=== PATIENT | female | born 1945 | race Caucasian/White ===

== ENCOUNTER 2023-02-28 10:31 | Inpatient (IN) ==
--- NOTE | 2023-02-24 09:51 | PAT Medication Instructions ---
Medication Instructions Date of Service February 24, 2023 Home Medications ascorbate calcium (vitamin C) 500 mg tablet 1,000 mg PO QAM cholecalciferol (vitamin D3) 50 mcg (2,000 unit) capsule 50 mcg PO BID clonidine 0.2 mg/24 hr weekly transdermal patch 1 patch transdermal WK esomeprazole magnesium 40 mg capsule,delayed release (Nexium) 40 mg PO QAM hydrochlorothiazide 25 mg tablet 25 mg PO QAM valsartan 160 mg tablet (Diovan) 160 mg PO QAM zinc 50 mg tablet 50 mg PO QAM magnesium oxide 400 mg PO HS Continue as directed clonidine 0.2 mg/24 hr weekly transdermal patch 1 patch transdermal WK (do not put on or near surgical site) DO NOT take the morning of surgery ascorbate calcium (vitamin C) 500 mg tablet 1,000 mg PO QAM cholecalciferol (vitamin D3) 50 mcg (2,000 unit) capsule 50 mcg PO BID hydrochlorothiazide 25 mg tablet 25 mg PO QAM valsartan 160 mg tablet (Diovan) 160 mg PO QAM zinc 50 mg tablet 50 mg PO QAM Take morning of surgery With a small sip of water, OTHERWISE NOTHING TO EAT OR DRINK AFTER MIDNIGHT: esomeprazole magnesium 40 mg capsule,delayed release (Nexium) 40 mg PO QAM Take evening before surgery cholecalciferol (vitamin D3) 50 mcg (2,000 unit) capsule 50 mcg PO BID magnesium oxide 400 mg PO HS Other Notes If you have any questions please call us at [phone] or [phone] or [phone] or [phone]
--- NOTE | 2023-02-25 09:13 | Anesthesiology Consultation ---
Date of Service February 25, 2023 Assessment & Plan (1) Encounter for pre-operative examination: - Check BSG AM DOS - COVID screening: Per assessment on 02/25: No known COVID-19 positive contacts or current COVID-19 related symptoms. Travel screen negative. Patient vaccinated. At surgeon discretion if preop Covid testing being done. - Outpatient joint assessment: Pt currently scheduled for inpatient pathway. Patient states that she is aware she is not candidate for outpatient joint pathway for upcoming revision surgery. Patient scheduled for SDA. - Pt scheduled for admission post-operatively. Plan for COVID Vyas AM DOS due to possibility that patient may have a roommate. OR aware. Vyas order placed. - S/P Left TKA (01/22/22): Epidural at L3/4 + PNB at [facility] - Anesthesia requests/concerns: Patient requests spinal or epidural anesthesia. Regarding preop medication instructions, patient states she is agreeable to hold valsartan DOS but will alternatively then take it the night before surgery (typically takes in the AM otherwise). Dr. Miller aware of patient's upcoming surgery/history. Patient requests Dr. Banks for anesthesiologist DOS. Chart Review Chart Review: Acceptable Risk for Surgery (pending evaluation AM DOS) and Patient seen in Pre Admission Testing Teaching & Discussion Pre-Anesthesia Teaching/Discussion Notes: Instructed NPO after midnight before surgery,except medications with 15 cc of water. Medication instructions provided according to the PAT guidelines. History Surgery Operation Date: 02/28/23 13:15 Proposed Procedures p Revision Right Total Hip Arthroplasty to Constrained Liner - Mayito Cleary, DO Height/Weight Height: 5 ft 7 in Weight: 78.1 kg Allergies Allergy/AdvReac Type Severity Reaction Status Date / Time Beta-Blockers Allergy Severe Anaphylaxis Verified 02/24/23 08:22 (Beta-Adrenergic Bloc vancomycin Allergy Severe Anaphylaxis Verified 02/24/23 08:22 amoxicillin [From Amoxil] Allergy Intermediate Rash Verified 02/24/23 08:22 ampicillin Allergy Intermediate Skin rash Unverified 02/25/23 11:40 Medications Home Medications Medication Instructions Recorded Confirmed Last Taken ascorbate calcium (vitamin C) 500 1,000 mg PO QAM 11/03/20 02/24/23 01/31/23 08:00 mg tablet cholecalciferol (vitamin D3) 50 50 mcg PO BID 11/03/20 02/24/2323 08:00 mcg (2,000 unit) capsule clonidine 0.2 mg/24 hr weekly 1 patch transdermal WK 12/04/21 02/24/23 01/30/23 transdermal patch esomeprazole magnesium 40 mg 40 mg PO QAM 12/04/21 02/24/23 01/31/23 08:00 capsule,delayed release (Nexium) hydrochlorothiazide 25 mg tablet 25 mg PO QAM 12/04/21 02/24/23 01/31/23 08:00 valsartan 160 mg tablet (Diovan) 160 mg PO QAM 12/04/21 02/24/23 01/31/23 08:00 zinc 50 mg tablet 50 mg PO QAM 12/04/21 02/24/23 01/31/23 08:00 magnesium oxide 400 mg PO HS 02/24/23 02/24/23 Unknown Past Medical History Medical History Atrial fibrillation Paroxysmal, onset after COVID 10/2019 - no recent issues/no anticoagulation SR with PACs on recent ECG 02/20/23 Elevated cholesterol GERD (gastroesophageal reflux disease) controlled, stable per pt History of COVID-10/2019> developed a. fib + cardiomyopathy Hx of basal cell carcinoma Hypertension Mitral valve regurgitation "slight, EF 68%" per pt, reports echo completed 2 yrs ago-not available for review Neuropathy BLE Osteoarthritis Pre-diabetes Pt denies DM diagnosis Most recent A1C 12/2020 6.9% Stress incontinence Past Family History Family History Father Pancreatic cancer Grandmother (Maternal) Breast cancer Other No family history of adverse response to anesthesia Denies family history of Ovarian cancer Prostate cancer Myocardial infarction Colorectal cancer Past Surgical History Surgical History History of colonoscopy History of esophagogastroduodenoscopy (EGD) History of partial hysterectomy History of repair of ACL LEFT History of root canal procedure History of tonsillectomy and adenoidectomy History of tooth extraction History of total hip replacement RT History of total knee replacement Left TKA (01/22/22): Epidural at L3/4 + PNB at [facility] *Specific anesthesia use requests made by patient prior to surgery* History of total shoulder replacement LEFT Hx of bilateral breast reduction surgery Hx of LASIK Social History Smoking Status: Never smoker Do You Dip or Chew Tobacco: No Hx Alcohol Use: Yes Alcohol type: wine alcohol intake frequency: holidays/special occasions only Hx Substance Use: No substance use type: does not use Review of Systems Patient denies chest pain, dyspnea on exertion, cough, wheezing. Physical Exam Vital Signs VITALS BP 165/91 P 74 SP02 97%RA RESP 16 PHYSICAL Full cervical extension range of motion. Full TMJ range of motion. TMD 3.5 finger breaths Mallampati Score 2 Lungs: clear throughout to auscultation Cardiac: regular rate and rhythm, no murmurs noted Spine: normal Extremities: no LE edema Lab Results Anesthesia Preop Results Results Anesthesia Widget: WBC 7.79 K/ul (4.8-10.8) 02/20/23 Hgb 13.4 g/dl (12.0-16.0) 02/20/23 Hct 41.3 % (37.0-47.0) 02/20/23 Plt 281 K/uL (130-400) 02/20/23 Na 134 mmol/L (136-145) L 02/25/23 K 4.1 mmol/L (3.5-5.1) 02/25/23 Cl 98 mmol/L (98-107) 02/25/23 CO2 28 mmol/L (21-32) 02/25/23 BUN 26 mg/dl (6-23) H 02/25/23 Creat 0.64 mg/dl (0.6-1.2) 02/25/23 Glucose Level 159 mg/dl (70-99(Fasting)) H 02/25/23 PT 10.7 Seconds (9.0-12.0) 02/25/23 PTT 26.1 Seconds (21.0-31.0) 02/25/23 INR 1.0 (0.9-1.1) 02/25/23 HA1c 7.1 % (4.5-5.6) H 02/25/23 Blood Type A Positive 02/25/23 Antibody Screen NEGATIVE 02/25/23 Testing Electrocardiogram Date: 02/20/23 SR with PACs at 71bpm. Right axis deviation. Septal infarct (cited on/before 01/08/22 per handicraft or hobby shop manager comparison). Chest X-Ray Date: 02/25/23 FINDINGS: Left shoulder arthroplasty is partially imaged. Anterior cervical spine fusion is incidentally noted. Lung volumes are normal. Lungs are clear. There is no pneumothorax or pleural effusion. Cardiac size is normal. Mediastinal contours are normal. There is no evidence for pulmonary edema. IMPRESSION: No acute cardiopulmonary findings. COVID-19 Risk Screen Screening Information COVID-19 Screen Date: 02/25/23 Exposure 21 Days Family/Household +COVID Last 21 Days: No Exposure 10 Days Any COVID Exposure Last 10 Days: No Symptoms Last 10 Days Experienced COVID Sx Last 10 Days: No + COVID 0-90 Days COVID + in Last 0-90 Days: No
[~2023-02-28 10:31] MED LIST: ACETAMINOPHEN 500 MG TAB PO SCH; BUPIVACAINE 0.5 % 5 MG/1 ML PF 10ML VIAL ONE; FAMOTIDINE 20 MG TAB PO SCH; GABAPENTIN 300 MG CAP PO SCH; LR 500ML BOLUS, THEN 15ML/HR IV SCH; LR 60ML/HR IV SCH; ORTHO JOINT MIX INFIL SCH; TRANEXAMIC ACID 1,000 MG **IV Intra-op IV SCH; TRANEXAMIC ACID 1,000 MG **IV Pre-op IV SCH; ceFAZolin 2000MG 2,000 MG/15 ML SYR IV SCH; dexAMETHasone 4 MG TAB PO SCH
[2023-02-28] MEDS ORDERED: ONDANSETRON INJ 2 MG/ML 2 ML VIAL IV PRN ×2 (12:26→18:18)
[2023-02-28] MEDS ORDERED: ePHEDrine sulfate 50 MG/ML AMP IV PRN (12:26)
[2023-02-28] MEDS ORDERED: ATROPINE SULFATE 0.1 MG/ML 10ML SYR IV PRN (12:26)
[2023-02-28] MEDS ORDERED: fentaNYL citrate PF 100 MCG/2 ML VIAL IV PRN (12:26)
--- NOTE | 2023-02-28 13:17 | History & Physical Bridge Note ---
Date of Service February 28, 2023 History & Physical Bridge Note I have examined the patient, reviewed the History & Physical and in the interval since the performance of the History & Physical I have noted the following changes of clinical significance: no changes noted
[2023-02-28] MEDS ORDERED: PROPOFOL IV EMULSION 10 MG/ML 20 ML VIAL IV ONE ×2 (13:57)
[2023-02-28] MEDS ORDERED: KETAMINE 50 MG/5 ML SYRINGE ONE (13:58)
[2023-02-28] MEDS ORDERED: LIDOCAINE 2% 2 ML VIAL/AMP(20MG/ML) INFIL ONE (13:58)
[2023-02-28] MEDS ORDERED: MIDAZOLAM HCL 1 MG/ML 2ML VIAL ONE (14:03)
[2023-02-28] MEDS ORDERED: ORTHO JOINT ANESTHETIC ONE (14:04)
[2023-02-28] MEDS ORDERED: DEXAMETHASONE SOD INJ 4 MG/ML VIAL ONE (14:57)
[2023-02-28] MEDS ORDERED: ONDANSETRON INJ 2 MG/ML 2 ML VIAL ONE (14:57)
[2023-02-28] MEDS ORDERED: PHENYLEPHRINE HCL 10 MG/ML VIAL ONE (15:17)
--- NOTE | 2023-02-28 15:48 | Operative Report ---
PG Post Operative Report Pre & Post Diagnosis Operation Date: 02/28/23 13:15 Pre-Op Diagnosis: Recurrent Dislocation Right Hip Arthroplasty Post-Op Diagnosis: Recurrent Dislocation Right Hip Arthroplasty I identified the patient and participated in the time-out.: Yes Procedure Operation Date: 02/28/23 13:15 Actual Procedures p Revision Right Total Hip Arthroplasty to Constrained Liner(Right) - Mayito Cleary DO Surgeon Mayito Cleary DO [employer] Mayito Blevins PA-C Estimated Blood Loss 50 Findings Consistent with Post-Op Diagnosis Specimens None Description of Procedure On February 28, 2023 Annie arrived at [facility] for the above procedure. She was seen in the preoperative holding area and the operative extremity identified and signed. She was given a spinal anesthetic. She was taken back the operating room and laid on the table in supine position. She was put under basic sedation. She was put into the lateral decubitus position. The right hip was prepped and draped in sterile fashion. A timeout was done. The patient and the operative extremity was properly identified. An anterior lateral incision was once again used. Dissection was taken down through the IT band. The IT band was opened. The anterior third of the abductors look like they never fully healed and were chronically torn and retracted back. The remainder of the abductors were in good shape. There was a large heme hematoma that was evacuated from the recurrent dislocations. The alignment of the implants looked okay. There was no signs of infection. The femoral and acetabular components were stable. I was able to easily piston the hip and easily dislocate it. I did not see any damage to the polyethylene insert. The femoral head was removed and the acetabulum was exposed. The polyethylene insert was then removed. Time was spent doing a complete circumferential soft tissue exposure around the edge of the acetabulum. A DePuy Melrose constrained acetabular liner with a +4 neutral offset was impacted into place. The proximal femur was then exposed. A 32 mm ceramic head with a +9 neck was then impacted into place. The ring was placed around the neck of the femur. The hip was then reduced. The ring was then slid over the acetabular liner. The hip was brought through full range of motion and felt to be stable. The wound was then irrigated. A 3-minute Betadine lavage was then done. The hip was then injected with 60 cc of an orthopedic pain control cocktail. The IT band was then closed with #1 Vicryl suture. Skin was closed with 2-0 Vicryl and ko. She was then placed in a Silverlon dressing. She was then transferred to a hospital bed and taken to the postanesthesia care unit in stable condition. She tolerated the procedure well. Mayito Blevins PA-C, was present for the entire procedure. He was critical for patient positioning, prepping, draping, retraction exposure, wound closure and application of sterile dressing. I attest to the content of the Intraoperative Record and any orders documented therein. Any exceptions are noted below.
--- NOTE | 2023-02-28 16:48 | XRay Report ---
XR hip 1V RT w pelvis CLINICAL HISTORY: Postoperative evaluation. COMPARISON: Pelvis and right hip radiographs February 20, 2023. FINDINGS: There are postoperative findings consistent with revision right hip arthroplasty. There is no periprosthetic fracture. No unexpected radiopaque foreign bodies. Skin ko are present. Left hip osteophytosis incidentally noted. IMPRESSION: Expected findings following revision right hip arthroplasty. ACT 112: Negative or not required by law. Electronically signed by: Jaxon Quiñones M.D. 02/28/2023 4:47 PM
--- NOTE | 2023-02-28 17:30 | Anesthesiology Progress Note ---
Date of Service February 28, 2023 Anesthesia Post Procedure Vital Signs Vital Signs: Temp Pulse Resp BP Pulse Ox O2 Del Method O2 Flow Rate 02/28/23 17:20 56 L 14 118/66 98 Nasal Cannula 2 02/28/23 17:10 63 16 122/67 97 Nasal Cannula 2 02/28/23 17:00 54 L 16 119/66 98 Nasal Cannula 2 02/28/23 16:50 52 L 14 114/60 97 Nasal Cannula 2 02/28/23 16:40 53 L 16 119/65 97 Nasal Cannula 2 02/28/23 16:30 55 L 16 119/70 96 Nasal Cannula 2 02/28/23 16:20 60 16 126/67 98 Oxymask 6 02/28/23 16:10 58 L 16 120/65 96 Oxymask 6 02/28/23 16:06 97.7 F 68 18 123/68 96 Oxymask 6 Transfer of Care Handoff Completed per policy Notes Mental Status: alert / awake / arousable and participated in evaluation Patient Amnestic to Procedure: Yes Nausea / Vomiting: adequately controlled Pain: adequately controlled Airway Patency, RR, SpO2: stable & adequate BP & HR: stable & adequate Hydration State: stable & adequate Neuraxial Anesthesia: was administered and sensory block is resolving Anesthetic Complications: no major complications apparent and Pt Satisfied with anesthetic care
[2023-02-28] MEDS ORDERED: NALOXONE HCL 0.4 MG/1 ML VIAL/CARP IV PRN (18:18)
[2023-02-28] MEDS ORDERED: oxyCODONE HCL IR 5 MG TAB (IMMEDIATE RELEASE) PO PRN (18:18)
[2023-02-28] MEDS ORDERED: HYDROmorphone INJ 0.5 MG/0.5 ML SYR IV PRN (18:18)
[2023-02-28] MEDS ORDERED: SODIUM CHLORIDE 0.9% 1000ML 1,000 ML IV SCH (18:18)
[2023-02-28] MEDS ORDERED: bisacodyL 10 MG SUPP PR PRN (18:18)
[2023-02-28] MEDS ORDERED: MAGNESIUM HYDROXIDE SUSP 30 ML UDC PO PRN (18:18)
[2023-02-28] MEDS ORDERED: METOCLOPRAMIDE HCL INJ 5 MG/ML 2 ML VIAL IV PRN (18:18)
[2023-02-28] MEDS: CHECK CLONIDINE PATCH PLACEMENT SCH (20:17)
[2023-02-28] MEDS: KETOROLAC TROMETHAMINE 15 MG/ML VIAL IV SCH (20:17)
[2023-02-28] MEDS: DOCUSATE SODIUM 100 MG CAP PO SCH (20:23)
[2023-02-28] MEDS ORDERED: SENNA 8.6 MG TAB PO SCH (21:00)
[2023-02-28] MEDS ORDERED: MAGNESIUM OXIDE 400 MG TAB PO SCH (21:00)
[2023-02-28] MEDS: ASPIRIN 81 MG ECTAB PO SCH (22:07)
[2023-02-28] MEDS: ACETAMINOPHEN 500 MG TAB PO SCH (22:07)
[2023-02-28] MEDS: ceFAZolin 2000MG 2,000 MG/15 ML SYR IV SCH (22:25)
[2023-03-01] MEDS: CHECK CLONIDINE PATCH PLACEMENT SCH ×2 (00:24→07:56)
[2023-03-01] MEDS: KETOROLAC TROMETHAMINE 15 MG/ML VIAL IV SCH ×3 (00:26→09:51)
[2023-03-01] MEDS: ceFAZolin 2000MG 2,000 MG/15 ML SYR IV SCH (05:45)
[2023-03-01] MEDS: ACETAMINOPHEN 500 MG TAB PO SCH (05:45)
--- NOTE | 2023-03-01 07:10 | Orthopedic Progress Note ---
Date of Service March 01, 2023 Assessment & Plan (1) Status post revision of total hip: Overall she is doing well. She is not having much pain in the right hip. She will be seen by physical therapy today for ambulation and range of motion exercises. She can be discharged home later today. She will follow-up with orthopedics in 2 weeks. Rosa Valencia was seen and examined at bedside this morning. Overall she is doing fairly well. She is not having much pain in the right hip. She has been up and ambulating to the bathroom. She has no complaints.. Review of Systems All systems reviewed & are unremarkable except as noted in HPI & below. Physical Exam On physical examination of the right hip, the dressing is clean and dry. She is neurovascular intact.. Results & Data Results & Data Laboratory Results . Diagnostic Findings Postoperative x-rays of the right hip show the prosthesis to be in good alignment.. PG Care Time/CCT Total # of Minutes Spent Total Time Spent with Patient: Total time spent is greater than 50% in coordination of care (as documented) at patient's floor/unit and/or counseling patient: Coding Level of Care Code 67042 Post Operative Follow-Up Diagnoses Status post revision of total hip Z96.649
--- NOTE | 2023-03-01 07:11 | Discharge Summary ---
Date of Service March 01, 2023 Principal Diagnosis Same as "Discharge Diagnosis" noted below under Discharge Instructions. Discharge Exam On physical examination of the right hip, the dressing is clean and dry. She is neurovascular intact.. Discharge Data Procedures Performed Operation Date: 02/28/23 13:15 Actual Procedures p Revision Right Total Hip Arthroplasty to Constrained Liner(Right) - Mayito Cleary DO Ordered Studies 02/28/23 05:00 US - OR guided needle placemen Routine Hospital Course (1) Status post revision of total hip: On February 28, 2023 Annie arrived at [facility] and underwent a revision right hip replacement without complication. She had a spinal anesthetic. Postoperatively she was started on aspirin for DVT prophylaxis and transferred to the general orthopedic floors. Her hospital course was uneventful. On postop day #1, her vital signs were stable and her pain was well controlled. She was able to participate well with physical therapy doing ambulation and range of motion exercises. She was then discharged home. She will follow with orthopedics in 2 weeks. PG Care Time/CCT Total # of Minutes Spent Total Time Spent with Patient: Total time spent is greater than 50% in coordination of care (as documented) at patient's floor/unit and/or counseling patient: Discharge Plan Discharge Items Patient Disposition: Home - Home Health Services Reason For Visit: POST SURGICAL CARE Discharge Diagnosis: Revision right hip replacement Activity: Per Instructions section Non-emergency contact: Surgeon Call non-emergency contact if: your wound has increased redness and your wound has increased drainage Follow-up/Referrals: Nikolai Tellez MD [Primary Care Provider] - Diet: Regular Addtl Attending Provider Instructions: Activity and Therapy Recommendations: * If you are using [facility] then therapy will be provided at your home until they feel you have accomplished all of your goals. * If you are using [facility] then Physical Therapy will be provided until they feel you are ready to start Outpatient Physical Therapy. * If you are not using home therapy then Outpatient Physical Therapy should start about 3-5 days from your day of surgery. Therapy will last about 6-10 weeks * You were shown a series of exercises in the hospital. Do these exercises three times each day including the exercises you were shown in physical therapy. * Get up and walk several times each day.~ For the first four weeks, try not to stand or walk for more than one hour at a time. If you do stand or walk for more than one hour, you will not hurt anything, but your leg will likely swell.~~ * As you feel comfortable, you may change from the walker or crutches to a cane and~then to independent walking. Medications: * Aspirin Most patients will be required to take Aspirin 81mg twice a day for 6 weeks after surgery. This is obtained [id number] and a prescription is not necessary. * Other medications may be prescribed for specific circumstances. If you have any questions, please call the office at . * Resume previous home medications unless otherwise instructed TEDs/Elastic Stockings: The white elastic stockings help limit swelling and prevent blood clots from forming in your legs. The more you wear them, the more they work. Wear them for six weeks. Dressing Care: Leave the Silverlon dressing in place for 7 days. After 7 days you may remove the dressing. If the incision is not draining then you may leave the ko open to air. If there is a little bit of drainage or if the ko are getting stuck on your clothing then cover the incision with a dry dressing. The ko will be removed at your 2 week follow-up appointment. Showering: You may shower with the Silverlon dressing in place. Do not let the shower spray hit the dressing directly. Pat the Silverlon dressing dry. If the dressing becomes wet underneath, then simply remove the dressing. Keep the incision dry until you are 7 days out from the day of surgery. After 7 days you may remove the Silverlon dressing and shower with the ko exposed. Let soapy water run over the ko and pat them dry. Do not scrub or soak the incision. Things To Watch For: * Drainage from the incision site that occurs more than one week after your angela fely. * Increased redness at the incision site. * Fever above 102 degrees Fahrenheit. * Unusual chest pain or shortness of breath. * Call [facility] at with any of the above problems Follow-Up Visit: Follow-up with Dr. Cleary's PA (Mayito Blevins) 2-3 weeks after your day of surgery. He will remove your ko and answer any questions. If you have any additional questions or concerns, Dr Cleary is usually in the office at the same time and will be available An appointment was probably scheduled when you signed-up for surgery in the off ice. If you have any questions call Office Instructions: More detailed instructions as well as Frequently Asked Questions were provided in a folder by our office when you signed-up for surgery. Please review these instructions when you get home. If you have any further questions or concerns, please feel free to call the office at [phone] Pending Studies at Discharge: No Stand-Alone Forms: My [facility] Medications and DC Order Prescriptions: New ketorolac 10 mg tablet 10 mg PO Q8H 5 Days Qty: 15 0RF aspirin 81 mg Tablet,Delayed Release (Dr/Ec) 81 mg PO BID 42 Days Qty: 0 0RF Continued cholecalciferol (vitamin D3) 50 mcg (2,000 unit) capsule 50 mcg PO BID ascorbate calcium (vitamin C) 500 mg tablet 1,000 mg PO QAM zinc 50 mg Tablet 50 mg PO QAM hydrochlorothiazide 25 mg Tablet 25 mg PO QAM valsartan [Diovan] 160 mg Tablet 160 mg PO QAM clonidine 0.2 mg/24 hr patch weekly 1 patch transdermal WK Rx Instructions: Apply weekly on Sundays esomeprazole magnesium [Nexium] 40 mg Capsule,Delayed Release(Dr/Ec) 40 mg PO QAM magnesium oxide 400 mg magnesium Capsule 400 mg PO HS Admission Data Admit Date/Time: 02/28/23 16:01 Attending Provider: Mayito Cleary Admit Provider: Mayito Cleary Primary Care Provider: iNkolai Tellez
[2023-03-01] MEDS: DOCUSATE SODIUM 100 MG CAP PO SCH (07:55)
[2023-03-01] MEDS: ASPIRIN 81 MG ECTAB PO SCH (07:59)
[2023-03-01] MEDS ORDERED: dexAMETHasone 4 MG TAB PO SCH (08:00)
[2023-03-01] MEDS ORDERED: ZINC SULFATE 220 MG CAPSULE PO SCH (09:00)
[2023-03-01] MEDS ORDERED: MULTIVITAMIN TAB PO SCH (09:00)
[2023-03-01] MEDS ORDERED: PANTOprazole 40 MG TAB PO SCH (09:00)
[2023-03-01] MEDS ORDERED: hydroCHLOROthiazide 25 MG TAB PO SCH (09:00)
[2023-03-01] MEDS ORDERED: VALSARTAN 80 MG TAB PO SCH (09:00)
== END 2023-03-01 11:59 | disposition home health service (06) | DRG 468 ==
LOC: ASU 10:31 → EDINP 10:31 → OBSVTOIN 16:01 → 3W 19:55

== ENCOUNTER 2024-05-05 14:51 | Inpatient (IN) ==
--- OUTSIDE RECORDS SUMMARY | 2024-05-05 14:56 | External Medical Summary | Summary of Care ---
Author Name Unknown Organization [facility] Address [address] [place] [address] Phone [phone] Care Team Providers Care Hand Fur Cleaner Name Role Phone Angelica Dueñaslle STAR Primary Care Provider Encounter Details Date Type Department Care Team (Late st Contact Info) Description 03/20/2024 Orders Only Orthopaedics [facility] [address] [place] [id number] Sharer, Karen Oates PA-C [address] [place] [address] Allergies Active Allergy Reactions Criticality Noted Date Comments Ampicillin Rash 06/12/2021 Atenolol Wheezing 03/20/2024 Rosuvastatin Muscle pain 05/23/2023 Also other statin. Declines statins. Iodinated Contrast Media Hives 09/01/2021 Pt stated she is allergic to IVP dye with a reaction of hives. Metoprolol Other (Please comment) 08/11/2021 Difficulty breathing Dtgfcsg-Qwxojq-Dacbj Pertussis 09/24/2021 Vancomycin Anaphylaxis High 02/15/2018 Other reaction(s): anaphylaxis/angioed dennis documented as of this encounter (statuses as of 04/21/2024) Medications Medication Sig Dispensed Refills Start Date End Date Status Esomeprazole Magnesium 20 MG Oral Packet Take 20 mg by mouth daily before breakfast. Active cloNIDine 0.2 MG/24HR Transdermal Patch Weekly (Catapres-Tts- 2) PLACE 1 PATCH TOPICALLY ON THE SKIN ONCE A WEEK 14 Patch 3 07/21/2023 07/20/2024 Active Valsartan 160 MG Oral Tablet (Diovan)Indications :Severe hypertension Take 1 Tablet by mouth in the morning. 100 Tablet 3 02/09/2024 05/23/2024 Active Cyclobenzaprine HCl 10 MG Oral Tablet (Flexeril)Indicatio ns:Sciatica of right side Take 1 Tablet by mouth in the morning and 1 Tablet at noon and 1 Tablet before bedtime. 30 Tablet 1 02/09/2024 Active Additional Information Patient not taking.Informant: Patient, Reported on 03/20/2024 Premarin 0.625 MG/GM Vaginal Cream (Estrogens Conjugated) Administer into the vagina at bedtime. As directed. 42.5 g 5 03/13/2024 Active Additional Information Patient not taking.Informant: Patient, Reported on 03/20/2024 Vitamin C 1000 MG Oral Tablet Take 1 Tablet by mouth in the morning and 1 Tablet before bedtime. Active Vitamin D (Cholecalciferol) 50 MCG (2000 UT) Oral Capsule Take 50 mcg by mouth in the morning and 50 mcg before bedtime. Active Acetaminophen 325 MG Oral Tablet (Tylenol) Take 3 Tablets by mouth every 6 hours as needed for mild pain 30 Tablet 03/21/2024 Active Vitamin 27-0.8 MG Oral Tablet Take 1 Tablet by mouth in the morning. 60 Tablet 03/21/2024 Active documented as of this encounter (statuses as of 04/21/2024) Active Problems Problem Noted Date Diagnosed Date Fall 03/20/2024 Overview: From horse cart SDH (subdural hematoma) 03/20/2024 Pneumothorax on right 03/20/2024 Dizziness 03/08/2024 Acute non intractable tension-type headache 02/09 Nausea without vomiting 03/08/2024 Sciatica of right side 02/09/2024 Status post total left knee replacement 01/26/20 22 Hyperlipidemia 10/16/2021 Essential hypertension with goal blood pressure less than 140/90 10/16/2021 Well adult exam 09/21/2021 Overview: Reaction to Tdap in past. 04/02 subdural hematoma, rib frx, small PTX, right flank hematoma 7x4xcm. anemia hgb 9 (down from 13). Transient hypotension 06/30 diag mammo [facility] WNL +calcs stable from 2019. 04/29 MRI knee severe OA +lateral & medial meniscal tears. ACL intact. Urge incontinence of urine 09/21/2021 Type 2 diabetes mellitus wit h hemoglobin A1c goal of less than 8.0% 09/21/2021 Overview: Diet controlled. Paroxysmal atrial fibrillation 06/12/2021 Overview: Started post-COVID. Now is intermittent. ECHO, cardiac workup. Declined anti- coag. Bruised on ASA. Now a few beats 2x/wk. History of 2019 novel coronavirus disease (COVID -19) 06/12/2021 Overview: Suspected 11/2019. Ab test negative per pt, no testing available at time of illness History of total hip replacement, right 06/12/20 Status post replacement of left shoulder joint 0 06/12/2021 Osteoarthritis of left knee 06/12/2021 Overview: ACL repair. History of hysterectomy 06/12/2021 Overview: For endometriosis, removed cervix, and one ovary. documented as of this encounter (statuses as of 04/21/2024) Resolved Problems Problem Noted Date Diagnosed Date Resolved Date Severe hypertension 09/21/2021 03/12/20 24 Overview: duplicate documented as of this encounter (statuses as of 04/21/2024) Immunizations Name Administration Dates Next Due COVID-19 mRNA, LNP-s, No Pre serve, 2-Dose Series (Moderna) 11/11/2020,10/14/2020 COVID-19, mRNA, LNP-s, PF, B ooster, 100mcg/0.5mg (Moderna) 07/10/2021,07/09/2021 Pneumococcal Polysaccharide PPV23 (Pneumovax) Seasonal Influenza, Quadrivalent Hd (Fluzone Hd) 07/30/2022 Seasonal Influenza, Quadrivalent Hd, 65+ Yrs Yellow Fever Vaccine, Live (YF-Vax) 10/18/1997 documented as of this encounter Social History Tobacco Use Types Packs/Day Years Used Date Smoking Tobacco: Never Smokeless Tobacco: Never Alcohol Use Standard Drinks/Week Comments Yes 0 (1 standard drink = 0.6 oz pur e alcohol) 1 / week PHQ-2 Answer Date Recorded PHQ Adult Total Score 0 05/23/2023 Hunger Vital Sign Answer Date Recorded Within the past 12 months, y ou worried that your food would run out before you got the money to buy more. Never true 05/23/20 23 Within the past 12 months, t he food you bought just didn't last and you didn't have money to get more. Never true 05/23/2023 Childcare Answer Date Recorded Do you feel overwhelmed with taking care of a child, family member or friend? No 05/23/2023 Does your family need help f inding childcare? (Household - for ages 0-17 years) Not on file 05/23/2023 Clothing Answer Date Recorded Have you been unable to get clothing when it was really needed? No 05/23/2023 Is your family able to get c lothes or diapers when needed? (Household - for ages 0-17 years) Not on file 05/23/2023 Personal Safety Answer Date Recorded Do you feel unsafe or have concerns for your saf ety? No 05/23/2023 Do you have concerns for you r family's safety? (Household - for ages 0-17 years) Not on file 05/23/2023 Utilities Answer Date Recorded Do you have trouble paying y our heating, water, or electric bill? No 05/23/2023 Is your family able to pay t he heat, water, or electric bill? (Household - for ages 0-17 years) Not on file 05/23/2023 Does your family have access to good internet? (Household - for ages 0-17 years) Not on file 05/23/2023 Employment Status Answer Date Recorded Are you unemployed or without regular income? No 05/23/2023 Does the household have a re gular source of income? (Household - for ages 0-17 years) Not on file 05/23/2023 Social Connections Answer Date Recorded How often do you feel lonely or isolated from th ose around you? Never 05/23/2023 Financial Resource Strain Answer Date R ecorded Do you have any trouble payi ng for your medications, or do you think you might in the future? No 05/23/2023 Does your family have troubl e paying for medicine? (Household - for ages 0-17 years) Not on file 05/23/2023 Transportation Needs Answer Date Record ed READ ONLY Do you have troubl e getting a ride to medical visits or work? Never True 05/23/2023 Does your family have a hard time getting a ride to doctors visits? (Household - for ages 0-17 years) Not on file 05/23/2023 Has lack of transportation k ept you from medical appointments, meetings, work, or from getting things needed for daily living? Check all that apply. (Adult - for ages 18 years and over) Not on file 05/23/2023 Do you (or your family) have trouble finding or paying for a ride (transportation)? (Household - for ages 0-17 years) Not on file 05/23/2023 Housing Stability Answer Date Recorded Do you currently live in a s helter or have no steady place to sleep at night? No 05/23/2023 READ ONLY Do you think you a re at risk of becoming homeless? No 05/23/2023 Does your family worry about paying for your home or becoming homeless? (Household - for ages 0-17 years) Not on file 0 05/23/2023 Are you homeless or worried that you might be in the future? (Adult - for ages 18 years and over) Not on file Are you (or your family) shira eless or worried that you might be in the future? (Household - for ages 0-17 years) Not on file Food Insecurity Answer Date Recorded Do you need food for this week? No 05/23/2023 Are you able to get enough f ood for your family? (Household - for ages 0-17 years) Not on file 05/23/2023 Does your family need food t his week? (Household - for ages 0-17 years) Not on file 05/23/2023 Do you always have enough fo od for your family? (Household - for ages 0-17 years) Not on file 05/23/2023 Sex and Gender Information Value Date Recorded Sex Assigned at Female 05/23/2023 10:08 AM EDT Gender Identity Female 05/23/2023 10:08 AM EDT Sexual Orientation Straight 05/23/2023 10 :08 AM EDT Job Start Date Occupation Industry Not on file Not on file Not on file documented as of this encounter Functional Status Functional Status Response Date of Assess ment Are you deaf or do you have serious difficulty h earing? No 03/20/2024 Are you blind or do you have serious difficulty seeing, even when wearing glasses? No 03/20/2024 Do you have serious difficul ty walking or climbing stairs? (5 years old or older) Yes 03/20/2024 Do you have difficulty dress ing or bathing? (5 years old or older) No 03/20/2024 Because of a physical, menta l, or emotional condition, do you have difficulty doing errands alone such as visiting a doctor s office or shopping? (15 years old or older) No 03/20/20 Cognitive Status Response Date of Assessm ent Because of a physical, menta l, or emotional condition, do you have serious difficulty concentrating, remembering, or making decisions? (5 years old or older) No 03/20/2024 documented as of this encounter Plan of Treatment Upcoming Encounters Date Type Department Care Team (Late st Contact Info) Description 05/28/2024 3:30 PM EDT Cardiac Studies Cardiac Studies, [facility] [address] [place] [id number] 06/18/2024 11:00 AM EDT Office Visit Cardiology, [facility] [address] [address] Jose Contreras, DO [address] [place] [address] 08/01/2024 3:20 PM EDT Office Visit Family Practice [facility] [address] [place] [id number] Nikolai Tellez MD [address] [place] [address] Health Maintenance Due Date Last Done Comments Diabetic Foot Exam 1963 Hepatitis C Screening 1963 Zoster Vaccines (1 of 2) 1997 Pneumococcal Vaccine: 65+ Years (2 of 2 - PCV) 09/21/2022 09/21/2021 COVID-19 Vaccine (5 - 2022-24 season) 2023 07/10/2021, 07/09/2021, 11/11/2020, Additional history exists Albumin/Creatinine Ratio 05/19/2024 023, 11/11/2022, 09/22/2021 Depression Screening 05/23/2024 05/23/2023 Influenza Vaccine (FLU shot) (#1) 2024 07/30/2022, 07/09/2020 HbA1c 09/08/2024 03/08/2024, 05/10, 11/11/2022, Additional history exists Diabetic Eye Exam 02/23/2025 02/24/2024, , 02/21/2023 (Done elsewhere), Additional history exists GFR 03/21/2025 03/21/2024, 03/10, 03/08/2024, Additional history exists DXA Scan 07/07/2028 07/07/2021 HPV (Gardasil) Vaccine Aged Out No lo nger eligible based on patient's age to complete this topic Hepatitis B Vaccine Aged Out No longe r eligible based on patient's age to complete this topic MENINGOCOCCAL (MENACTRA/MENVEO) Aged Out No longer eligible based on patient's age to complete this topic documented as of this encounter Medical Devices Not on filedocumented as of this encounter Procedures Procedure Name Priority Date/Time Associated Diagnosis Comments RADIOLOGY EXAM - GENERAL RAD (IMAGES ONLY,NO REPORT) Routine 03/20/2024 1:00 AM EDT documented in this encounter Results * RADIOLOGY EXAM - GENERAL RAD (IMAGES ONLY,NO REPORT) (03/20/2024 1:00 AM EDT) 03/20/2024 12:5 3 AM EDT Narrative Scheduling, Silent - 04/21/2024 12:22 AM EDT This is an imaging study not interpreted or resulted by a [facility] or [facility] contracted radiologist. Karen Oates Sharer [facility] ([facility]) documented in this encounter Advance Directives * Full Code (Latest Code Status on File) Date Activated Date Inactivated Comments 03/20/2024 4:40 AM 03/21/2024 6:52 PM This order r eflects the patients wishes and were consensually agreed upon. Question Answer Comments Discussion of Advance Direct alireza occurred with: Not Discussed due to patient's condition Care Teams Hand Fur Cleaner Relationship Specialty Start Date End Date Angelica Dueñas CRNP [address] [place] [address] PCP - General Nurse Practitioner 04/19/24 documented as of this encounter
--- OUTSIDE RECORDS SUMMARY | 2024-05-05 14:56 | External Medical Summary | Summary of Care ---
Author Name Unknown Organization [facility] Address [address] [place] [address] Phone [phone] Care Team Providers Care Older Worker Specialist Name Role Phone Nikolai Tellez MD Primary Care Provider + Encounter Details Date Type Department Care Team (Latest Contact Info) Description 03/20/2024 1:00 AM EDT - 03/20/2024 1:24 AM EDT Hospital Encounter Radiology Film File [address] [place] [address] Discharge Disposition: Home - Self Care Allergies Active Allergy Reactions Criticality Noted Date Comments Ampicillin Rash 06/12/2021 Atenolol Wheezing 03/20/2024 Rosuvastatin Muscle pain 05/23/2023 Also other statin. Declines statins. Iodinated Contrast Media Hives 09/01/2021 Pt stated she is allergic to IVP dye with a reaction of hives. Metoprolol Other (Please comment) 08/11/2021 Difficulty breathing Oxstogz-Noaeat-Tvvwh Pertussis 09/24/2021 Vancomycin Anaphylaxis High 02/15/2018 Other [...] from 13). Transient hypotension 06/30 diag mammo [facility] WNL +calcs stable from 2018. 04/29 MRI knee severe OA +lateral & [...] History of total hip replacement, right 06/12/20 21 Status post replacement of left shoulder joint [...] 3:30 PM EDT Cardiac Studies Cardiac Studies, [facility] [address] [place] [address] 06/18/2024 11:00 AM EDT Office Visit Cardiology, [facility] [address] [place] [address] Jose Contreras O, DO [address] [place] [address] 08/01/2024 3:20 PM EDT Office Visit Family Practice [facility] [address] [place] [address] Nikolai Tellez MD [address] [place] [address] Health Maintenance Due Date Last Done Comments Diabetic Foot Exam 1963 Hepatitis C Screening 1965 Zoster Vaccines (1 of 2) 1997 Pneumococcal Vaccine: 65+ Years (2 of 2 - PCV) 09/21/2022 09/21/2021 COVID-19 Vaccine (2022-24 season) 2023 07/10/2021, 07/09/2021, 11/11/2020, Additional history [...] study not interpreted or resulted by a [facility] or [facility] contracted radiologist. Karen Echeverria PA-C RADIOLOGY ([facility]) documented in this encounter Advance Directives * Full Code (Latest Code Status on File) Date Activated Date Inactivated Comments 03/20/2024 4:40 AM 03/21/2024 6:52 PM This order r eflects the patients wishes and were consensually agreed upon. Question Answer Comments Discussion of Advance Direct alireza occurred with: Not Discussed due to patient's condition Care Teams Older Worker Specialist Relationship Specialty Start Date End Date Nikolai Tellez MD [address] [place] [address] PCP - General Family Medicine 09/21/21 04/18/24 documented as of this encounter
--- NOTE | 2024-05-05 15:09 | Emergency Department Note ---
Impression & Plan Ischemic cerebrovascular accident (CVA), Stroke-like symptom, Aphasia, Abnormal brain MRI, Abnormal brain CT ED Provider Note NAME: MG PRADO AGE: 78 SEX: F : 1945 ARRIVES VIA: Ambulance INFORMANT: Patient, EMS ED PROVIDER(S): Miko Goldberg DO CHIEF COMPLAINT: Strokelike symptoms HPI: The patient is a 78-year-old female who presented to the emergency department for an evaluation of strokelike symptoms. The patient started having symptoms last evening. She was having difficulty speaking. Her symptoms became increased today. Her person who stays with her called 911 and the patient arrived via ambulance. Prior to arrival the patient was made a stroke alert. It was known that she has a history of a recent intracranial hemorrhage which was felt to be traumatic in nature. She is not taking any blood thinners. The patient herself at this time does feel her symptoms are improving. Prior to arrival reportedly the patient was not able to speak and had incorrect words inserting. She also was noted to have a facial droop. She had no unilateral weakness. She does complain of slight neck pain but no headache at this time. On further history the patient states that she may have been feeling the symptoms as early as 5 PM yesterday on May 04. ROS: See above HPI for pertinent positives & negatives. A total of 10 systems reviewed and were otherwise negative. PAST MEDICAL HISTORY: See Below PAST SURGICAL HISTORY: See Below FAMILY HISTORY: See Below SOCIAL HISTORY: See Below HOME MEDICATIONS: See Below ALLERGIES: See Below VITALS: See Below PHYSICAL EXAMINATION: GENERAL: Patient is awake alert in no acute distress patient is resting comfortably and showing no signs of anxiety EYES: The conjunctivae are clear. The pupils are round and reactive. EARS, NOSE, MOUTH AND THROAT: The nose is without any evidence of any deformity. NECK: The neck is nontender and supple. RESPIRATORY: Normal respiratory effort is noted there is no evidence of wheezing rhonchi or rales CARDIOVASCULAR: Regular rate and rhythm noted there no murmurs rubs or gallops normal S1 normal S2. GASTROINTESTINAL: The abdomen is soft. Abdomen is nontender. MUSCULOSKELETAL/EXTREMITIES: There is no evidence of gross deformity full range of motion is noted in the hips and shoulders. SKIN: There is no obvious evidence of any rash. There are no petechiae, pallor or cyanosis noted. NEUROLOGIC: Patient is awake alert and oriented x3. The patient is able to hold each leg off the bed for greater than 5 seconds. Banking Representative strength was symmetric. There is no drift in the upper extremities. Speech was clear. There appeared to be a slight right facial droop but it included the forehead. MEDICAL DECISION MAKING: The patient is a 78-year-old female who presented to the emergency department for strokelike symptoms. She was made a stroke alert prior to arrival. It sounds like she may have been having some waxing and waning of symptoms but ultimately after history was obtained it sounds of the patient's symptoms began at 4 PM yesterday. The patient is a history of a recent head injury. This was complicated by a small amount of intracranial hemorrhage. This has resolved but it was a very recent injury. The patient does not take any blood thinners. It sounds though she may have a history of paroxysmal atrial fibrillation. I discussed the patient's laboratory and radiographic studies with her. I discussed her condition with the telestroke neurologist. Her symptoms appear to be improving at this time. She does not appear to be a candidate for TNK because of the last known well time. We cannot determine an LVO because of her severe dye allergy. After discussion with the [facility] group they did recommend a stat MRA but also recommended that this may not be in time to be within 24 hours the last known well. I discussed patient's condition with the on-call [facility] hospitalist group. They have agreed to evaluate the patient in the emergency department. Triage Nursing notes reviewed. Prior medical records reviewed Vital Signs: reviewed and remarkable for hypertension Differential diagnosis: Infection, dehydration, metabolic abnormality, hypo/hyperglycemia, electrolyte disturbance, anemia, hypoxia, cardiac sources, intracerebral event, toxicologic, neurologic, as well as other pathologies. ER treatment provided: See below Diagnostics interpreted by me: ECG: EKG was obtained in the emergency department. My interpretation is sinus rhythm at 84 bpm. PACs as well as PVCs were noted. Nonspecific ST segment abnormalities were noted. This was compared to a tracing from March 20, 2024. No changes were noted. Cardiac Monitoring: An order was placed for continuous cardiac monitoring. The monitor shows a rate of 73 bpm with sinus rhythm. Laboratory studies: As stated above and show below. Imaging studies: See below. Radiographic imaging was reviewed by myself Consultation(s): I discussed this case with Dr. Gil who is on-call for the telemetry stroke group at [facility]. I discussed this case with ED who is on for the [facility] hospitalist group. ED COURSE: Procedures: none Critical Care: I have personally spent greater than 45 minutes of critical care time in the direct management of this patient. This includes bedside care, interpretation of diagnostic studies, and testing, discussion with consultants, patient, and family members, and other required patient management activities. This 45 minutes is in excess of all separately billable procedures. 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 Abnormal brain CT (Acute) Abnormal brain MRI (Acute) Aphasia (Acute) Stroke-like symptom (Acute) Lumbar radicular pain Spinal stenosis of lumbar region Sacroiliitis Sciatica Tear of gluteus medius tendon Leg length discrepancy Status post revision of total hip (~02/2023) Pre-diabetes Pt denies DM diagnosis Most recent A1C 12/2020 6.9% A-fib Hypertension Elevated fasting glucose Urinary urgency Breast cancer screening Postmenopausal HRT (hormone replacement therapy) Health care maintenance Encounter for pre-operative examination Status post left knee replacement (~01/2022) Achilles tendinitis Medical History Stress incontinence Hx of basal cell carcinoma History of COVID-19 10/2019> developed a. fib + cardiomyopathy Elevated cholesterol Osteoarthritis GERD (gastroesophageal reflux disease) controlled, stable per pt Neuropathy BLE Mitral valve regurgitation "slight, EF 68%" per pt, reports echo completed 2 yrs ago-not available for review Atrial fibrillation Paroxysmal, onset after COVID 10/2019 - no recent issues/no anticoagulation SR with PACs on recent ECG 02/20/23 Hypertension Surgical History Hx of bilateral breast reduction surgery History of total knee replacement Left TKA (01/22/22): Epidural at L3/4 + PNB at [facility] *Specific anesthesia use requests made by patient prior to surgery* History of partial hysterectomy History of tonsillectomy and adenoidectomy Hx of LASIK History of esophagogastroduodenoscopy (EGD) History of colonoscopy History of root canal procedure History of tooth extraction History of total hip replacement RT History of repair of ACL LEFT History of total shoulder replacement LEFT Family History Father Pancreatic cancer Grandmother (Maternal) Breast cancer Other No family history of adverse response to anesthesia Denies family history of Ovarian cancer Prostate cancer Myocardial infarction Colorectal cancer Social History Smoking Status: Never smoker Second Hand Exposure: Yes ( A CHILD); Do You Dip or Chew Tobacco: No; Hx Alcohol Use: No Hx Substance Use: No Preferred Language: Mongolian Communication Ability: Effective Music Producer Required: No Beliefs That Will Affect Care: None marital status: Current Living Situation: Significant Other current occupational status: employed current occupation: anesthesiologist - [employer] How many Children do You have: 3 How many Children do You have Comment: 2 boys live in [place] Feels Safe at Home: Yes Diet: regular during the past year weight has: remained stable Physical Activity Frequency: Daily Sunscreen Use: Yes Assistive Devices: Cane and Walker Allergies Allergies Allergy/AdvReac Type Severity Reaction Status Date / Time Beta-Blockers Allergy Severe Anaphylaxis Verified 02/16/24 08:43 (Beta-Adrenergic Bloc Iodinated Contrast Media Allergy Severe pt reports Verified 05/05/24 16:36 hives vancomycin Allergy Severe Anaphylaxis Verified 05/05/24 16:34 amoxicillin [From Amoxil] Allergy Intermediate Rash Verified 02/16/24 08:43 ampicillin Allergy Intermediate Skin rash Verified 05/05/24 16:34 metoprolol Allergy Difficulty Verified 05/05/24 16:38 Breathing atenolol AdvReac Wheezing Verified 05/05/24 16:33 [id number] Reductase AdvReac Muscle Pain Verified 05/05/24 16:36 Inhibitor TDAP Allergy Unknown Uncoded 05/05/24 16:38 Home Meds Home Medications Medication Instructions Recorded Confirmed cholecalciferol (vitamin D3) 50 50 mcg PO AMHS 11/03/20 05/05/24 mcg (2,000 unit) capsule clonidine 0.2 mg/24 hr weekly 1 patch transdermal WK 12/04/21 05/05/24 transdermal patch valsartan 160 mg tablet (Diovan) 160 mg PO QAM 12/04/21 05/05/24 ascorbic acid (vitamin C) 1,000 mg 1 g PO AMHS 03/19/24 05/05/24 tablet (Vitamin C) acetaminophen 325 mg tablet 975 mg PO Q6 PRN Pain (Scale Score 05/05/24 05/05/24 1-3) esomeprazole magnesium 20 mg 20 mg PO DAILYBB 05/05/24 05/05/24 tablet,delayed release vits no.124-ferrous fum 1 tab PO QAM 05/05/24 05/05/24 27 mg iron-folic acid 800 mcg tablet ( Vitamin) Results & Data (ED) Vital Signs Vital Signs - 24 hr 05/05/24 15:00 05/05/24 15:00 05/05/24 15:18 Temperature 36.5 C Temperature Source Oral Pulse Rate 77 82 Pulse Rate [Left Finger] Pulse Rate from SpO2 Sensor 79 Pulse Rhythm [Left Finger] Pulse Strength [Left Finger] Respiratory Rate 18 22 Respiratory Effort / Characteristics Non-Labored Spontaneous Respiratory Depth Normal Respiratory Pattern Regular Blood Pressure 172/96 H Blood Pressure [Left Arm] Blood Pressure Mean 121 Blood Pressure Mean [Left Arm] Blood Pressure Position Sitting Blood Pressure Position [Left Arm] Pulse Oximetry 98 98 96 Oxygen Delivery Method Room Air Room Air Sepsis Recent Fever Within 48 Hours No Sepsis New/Unexplained Change in Mental Status No Sepsis Action Taken by Nursing No Action Required 05/05/24 15:24 05/05/24 15:28 05/05/24 15:28 Temperature Temperature Source Pulse Rate 82 Pulse Rate [Left Finger] 73 Pulse Rate from SpO2 Sensor 75 Pulse Rhythm [Left Finger] Regular Pulse Strength [Left Finger] Normal Respiratory Rate 17 22 Respiratory Effort / Characteristics Non-Labored Spontaneous Respiratory Depth Normal Respiratory Pattern Regular Blood Pressure 174/106 H Blood Pressure [Left Arm] 174/106 H Blood Pressure Mean 130 Blood Pressure Mean [Left Arm] 128 Blood Pressure Position Blood Pressure Position [Left Arm] Lying Pulse Oximetry 97 98 Oxygen Delivery Method Room Air Sepsis Recent Fever Within 48 Hours Sepsis New/Unexplained Change in Mental Status Sepsis Action Taken by Nursing 05/05/24 15:32 Temperature Temperature Source Pulse Rate 73 Pulse Rate [Left Finger] Pulse Rate from SpO2 Sensor 71 Pulse Rhythm [Left Finger] Pulse Strength [Left Finger] Respiratory Rate 22 Respiratory Effort / Characteristics Respiratory Depth Respiratory Pattern Blood Pressure Blood Pressure [Left Arm] Blood Pressure Mean Blood Pressure Mean [Left Arm] Blood Pressure Position Blood Pressure Position [Left Arm] Pulse Oximetry 95 Oxygen Delivery Method Sepsis Recent Fever Within 48 Hours Sepsis New/Unexplained Change in Mental Status Sepsis Action Taken by [facility] Medications Current Medication List: was personally reviewed by me Laboratory Data Attestation: I reviewed the patient's lab results. 05/05/24 15:03 05/05/24 15:03 Lab Results 05/05/24 05/05/24 Range/Units 15:03 15:15 WBC 8.38 (4.8-10.8) K/ul RBC 3.98 L (4.20-5.40) M/uL Hgb 12.8 (12.0-16.0) g/dl Hct 39.0 (37.0-47.0) % MCV 98.0 (80.0-100.0) fL MCH 32.2 (25.0-34.0) pg MCHC 32.8 (32.0-36.0) g/dL RDW Std Deviation 47.8 H (36.4-46.3) fL RDW Coeff of Gerardo 13.2 (11.5-14.5) % Plt Count 273 (130-400) K/uL MPV 9.9 (9.4-12.4) fL Immature Gran % (Auto) 0.4 % Neut % (Auto) 72.8 % Lymph % (Auto) 15.5 % [place] % (Auto) 9.1 % Eos % (Auto) 1.6 % Baso % (Auto) 0.6 % Neut # (Auto) 6.11 (1.40-6.50) K/uL Lymph # (Auto) 1.30 (1.20-3.40) K/uL [place] # (Auto) 0.76 H (0.11-0.59) K/uL Eos # (Auto) 0.13 (0.00-0.50) K/uL Baso # (Auto) 0.05 (0.00-0.20) K/uL Immature Gran # (Auto) 0.03 (0.01-0.20) K/uL PT 10.3 (9.0-12.0) Seconds INR 0.9 (0.9-1.1) APTT 24 (21-31) Seconds PTT Ratio 0.9 Sodium 137 (136-145) mmol/L Potassium 3.9 (3.5-5.1) mmol/L Chloride 102 (98-107) mmol/L Carbon Dioxide 29 (21-32) mmol/L Anion Gap 6 (3-11) BUN 21 (6-23) mg/dl Creatinine 0.66 (0.6-1.2) mg/dl Est Cr Clr Drug Dosing 73.3 ml/min Est GFR ( Amer) 99.5 ml/min Est GFR (Non-Af Amer) 85.8 ml/min BUN/Creatinine Ratio 31.8 H (10-20) Glucose 166 H (70-99(Fasting)) mg/dl Calcium 9.9 (8.6-10.3) mg/dl Magnesium 2.1 (1.7-2.4) mg/dl Total Bilirubin 0.3 (0.2-1.0) mg/dl AST 18 (13-39) U/L ALT 14 (7-52) U/L Alkaline Phosphatase 73 (34-104) U/L Troponin I High Sens 18.0 H (0-14) pg/ml Total Protein 7.1 (6.0-8.3) gm/dl Albumin 4.3 (3.4-5.0) gm/dl Globulin 2.8 (2.5-4.0) gm/dl Albumin/Globulin Ratio 1.5 (0.9-2) Urine Color Yellow Urine Appearance Clear (Clear) Urine pH 7.5 (4.5-7.5) Ur Specific [place] 1.008 (1.000-1.030) Urine Protein Negative (Negative) Urine Glucose (UA) Negative (Negative) Urine Ketones Negative (Negative) Urine Blood Negative (Negative) Urine Nitrite Negative (Negative) Urine Bilirubin Negative (Negative) Urine Urobilinogen Negative (Negative) Ur Leukocyte Esterase Negative (Negative) Administered Medications Ascorbic Acid (Ascorbic Acid 500 Mg Tab) 1,000 mg PO BID [facility] Stop: 06/04/24 20:59 Last Admin: 05/05/24 20:32 Dose: 1,000 mg Documented By: GENOVEVA Clonidine HCl (Clonidine Hcl 0.2 Mg/24 Hr Transderm Sys) 1 patch TD Q7D [facility] Stop: 06/04/24 17:59 Last Admin: 05/05/24 19:05 Dose: 1 patch Documented By: GENOVEVA Miscellaneous (Remove Clonidine Patch) 1 each N/A CQWK GEOVANNI Stop: 06/04/24 17:59 Last Admin: 05/05/24 19:06 Dose: 1 each Documented By: GENOVEVA Rosuvastatin Calcium (Rosuvastatin Calcium 10 Mg Tab) 10 mg PO QAM GEOVANNI Stop: 06/04/24 19:44 Last Admin: 05/05/24 20:31 Dose: 10 mg Documented By: GENOVEVA Vitamin D (Cholecalciferol 25 Mcg (1000 Units) Tab) 50 mcg PO BID GEOVANNI Stop: 06/04/24 20:59 Last Admin: 05/05/24 20:31 Dose: 50 mcg Documented By: GENOVEVA Discontinued Medications Aspirin (Aspirin 81 Mg Chew) 81 mg PO ONCE ONE Stop: 05/05/24 17:37 Last Admin: 05/05/24 17:43 Dose: 81 mg Documented By: GENOVEVA Imaging Data Attestation: I personally reviewed and interpreted this imaging study as follows: My Impression: 1 view chest x-ray was obtained in the emergency department. My interpretation is no free air or definite infiltrate, final report below. CT of the brain was obtained in the emergency department. My interpretation is no intracranial hemorrhage or mass effect, final report below. MRI of the brain was obtained in the emergency department. My interpretation is changes in the signal on diffusion-weighted images on the right. Final report pending. Radiologist's Impression: Chest X-Ray 05/05/24 14:45 XR chest 1V portable HISTORY: 78 years-old Female neuro deficit, acute stroke suspected acute strokelike symptoms COMPARISON: 03/20/2024 TECHNIQUE: AP view the chest FINDINGS: Cardiac silhouette is enlarged. Pulmonary vascular congestion with mild bibasilar densities. No pneumothorax. Degenerative changes of the spine and right shoulder. Cervical spinal fusion hardware. Left shoulder arthroplasty. IMPRESSION: 1. Cardiomegaly with pulmonary vascular congestion. 2. Mild bibasilar densities favor atelectasis. ACT 112: Negative or not required by law. The above report was generated using voice recognition software. It may contain grammatical, syntax or spelling errors. Electronically signed by: Nicolas Morgan M.D. 05/05/2024 3:[address] 05/05/24 14:45 CT head/brain wo con CLINICAL HISTORY: 78 years-old Female with neuro deficit, acute stroke suspected. Acute short symptoms TECHNIQUE: Multiple axial CT images of the head were obtained without contrast. A dose lowering technique was utilized adhering to the principles of ALARA. CT DOSE: 625.8 mGy.cm COMPARISON: 03/20/2024 FINDINGS: No acute intracranial hemorrhage, midline shift, intracranial mass, hydrocephalus, territorial ischemia or abnormal extra-axial collection. Involutional changes with microvascular ischemic disease. Ill-defined area of decreased attenuation within the right frontal lobe mendoza radiata extending into the caudate and lentiform nuclei measures up to 2 cm on image 13 series 2, new from prior. This may also involve the anterior limb internal capsule. Study is mildly motion degraded. The calvarium is intact. The paranasal sinuses, mastoid air cells, and middle ear cavities are clear. IMPRESSION: 1. Acute to subacute appearing 2 cm right frontal lobe mendoza radiata and basal ganglia infarct is new from 03/20/2024. 2. No acute intracranial hemorrhage or midline shift. ACT 112: Negative or not required by law. The above report was generated using voice recognition software. It may contain grammatical, syntax or spelling errors. Electronically signed by: Nicolas Morgan M.D. 05/05/2024 3:21 PM Brain MRI 05/05/24 15:11 MR brain wo con HISTORY: 78 years-old Female acute stroker like SS acute strokelike symptoms COMPARISON: PET/CT examination TECHNIQUE: Multiplanar multisequence MRI of the brain was obtained without IV contrast. FINDINGS: No acute intracranial hemorrhage, midline shift, intracranial mass, hydrocephalus, territorial ischemia or abnormal extra-axial collection. Involutional changes with minimal microvascular ischemic disease. Restricted diffusion within the right frontal lobe mendoza radiata extending into the caudate and lentiform nuclei measures up to 2 cm on image 15 series 3, also noted on the head CT of same day. This infarct also involves the anterior limb internal capsule. Study is mildly motion degraded. The calvarium is intact. The paranasal sinuses, mastoid air cells, and middle ear cavities are clear. Cerebral venous sinuses and major arterial flow voids appear patent. IMPRESSION: Confirmation of the acute 2 cm infarct in the right frontal lobe mendoza radiata and right basal ganglia. ACT 112: Negative or not required by law. The above report was generated using voice recognition software. It may contain grammatical, syntax or spelling errors. Electronically signed by: Nicolas Mogran M.D. 05/05/2024 5:09 PM Head MRA 05/05/24 15:11 MR angio head wo con, MR angio neck wo con HISTORY: 78 years-old Female acute stroker like SS acute strokelike symptoms COMPARISON: Head CT and brain MRI of same day TECHNIQUE: MRA of the head and neck was obtained without IV contrast. All measurements were obtained according to NASCET criteria. 3-D coronal and sagittal measurements were obtained and transmitted review. FINDINGS: The neck portion of the study is motion degraded. Tortuosity of the internal carotid arteries with mild multifocal stenoses. The vertebral arteries are also tortuous with multifocal mild to moderate stenosis. No aneurysm, dissection, high-grade stenosis or arterial occlusion identified within the head or neck. IMPRESSION: Unremarkable MRA of the head and neck. ACT 112: Negative or not required by law. The above report was generated using voice recognition software. It may contain grammatical, syntax or spelling errors. Electronically signed by: Nicolas Morgan M.D. 05/05/2024 5:13 PM Neck MRA 05/05/24 15:11 MR angio head wo con, MR angio neck wo con HISTORY: 78 years-old Female acute stroker like SS acute strokelike symptoms COMPARISON: Head CT and brain MRI of same day TECHNIQUE: MRA of the head and neck was obtained without IV contrast. All measurements were obtained according to NASCET criteria. 3-D coronal and sagittal measurements were obtained and transmitted review. FINDINGS: The neck portion of the study is motion degraded. Tortuosity of the internal carotid arteries with mild multifocal stenoses. The vertebral arteries are also tortuous with multifocal mild to moderate stenosis. No aneurysm, dissection, high-grade stenosis or arterial occlusion identified within the head or neck. IMPRESSION: Unremarkable MRA of the head and neck. ACT 112: Negative or not required by law. The above report was generated using voice recognition software. It may contain grammatical, syntax or spelling errors. Electronically signed by: Nicolas Morgan M.D. 05/05/2024 5:13 PM Discharge Plan Visit Data Chief Complaint: Stroke Alert Stated Complaint: STROKE ALERT ED Provider: Miko Goldberg Discharge Problem: Ischemic cerebrovascular accident (CVA), Stroke-like symptom, Aphasia, Abnormal brain MRI, Abnormal brain CT Patient Disposition: Being Evaluated by Hospitalist Discharge Instructions Interventions: ED Discharge Assessment Last Done: 05/05/24 17:26
[2024-05-05 15:18] LABS: Basophils # (auto) 0.05 K/uL (0.00-0.20); Basophils % (auto) 0.6 %; Eosinophils # (auto) 0.13 K/uL (0.00-0.50); Eosinophils % (auto) 1.6 %; Hemoglobin 12.8 g/dl (12.0-16.0); Immature Granulocytes # (auto) 0.03 K/uL (0.01-0.20); Immature Granulocytes % (auto) 0.4 %; Lymphocytes % (auto) 15.5 %; Mean Corpuscular Hemoglobin 32.2 pg (25.0-34.0); Mean Corpuscular Hgb Conc 32.8 g/dL (32.0-36.0); Mean Platelet Volume 9.9 fL (9.4-12.4); Monocytes # (auto) 0.76 K/uL (0.11-0.59); Monocytes % (auto) 9.1 %; Neutrophils # (auto) 6.11 K/uL (1.40-6.50); Neutrophils % (auto) 72.8 %; Platelet Count 273 K/uL (130-400); RDW Coefficient of Variation 13.2 % (11.5-14.5); RDW Standard Deviation 47.8 fL (36.4-46.3); Red Blood Count 3.98 M/uL (4.20-5.40); White Blood Count 8.38 K/ul (4.8-10.8)
--- NOTE | 2024-05-05 15:22 | CT Scan Report ---
CT head/brain wo con CLINICAL HISTORY: 78 years-old Female with neuro deficit, acute stroke suspected. Acute short sympto ms TECHNIQUE: Multiple axial CT images of the head were obtained without contrast. A dose lowering tech nique was utilized adhering to the principles of ALARA. CT DOSE: 625.8 mGy.cm COMPARISON: 03/20/2024 FINDINGS: No acute intracranial hemorrhage, midline shift, intracranial mass, hydrocephalus, territorial ischem ia or abnormal extra-axial collection. Involutional changes with microvascular ischemic disease. Ill- defined area of decreased attenuation within the right frontal lobe mendoza radiata extending into the caudate and lentiform nuclei measures up to 2 cm on image 13 series 2, new from prior. This may also involve the anterior limb internal capsule. Study is mildly motion degraded. The calvarium is intact. The paranasal sinuses, mastoid air cells, and middle ear cavities are clear . IMPRESSION: 1. Acute to subacute appearing 2 cm right frontal lobe mendoza radiata and basal ganglia infarct is ne w from 03/20/2024. 2. No acute intracranial hemorrhage or midline shift. ACT 112: Negative or not required by law. The above report was generated using voice recognition software. It may contain grammatical, syntax o r spelling errors. Electronically signed by: Nicolas Morgan M.D. 05/05/2024 3:21 PM
--- NOTE | 2024-05-05 15:24 | XRay Report ---
XR chest 1V portable HISTORY: 78 years-old Female neuro deficit, acute stroke suspected acute strokelike symptoms COMPARISON: 03/20/2024 TECHNIQUE: AP view the chest FINDINGS: Cardiac silhouette is enlarged. Pulmonary vascular congestion with mild bibasilar densities. No pneum othorax. Degenerative changes of the spine and right shoulder. Cervical spinal fusion hardware. Left shoulder arthroplasty. IMPRESSION: 1. Cardiomegaly with pulmonary vascular congestion. 2. Mild bibasilar densities favor atelectasis. ACT 112: Negative or not required by law. The above report was generated using voice recognition software. It may contain grammatical, syntax o r spelling errors. Electronically signed by: Nicolas Morgan M.D. 05/05/2024 3:23 PM
[2024-05-05 15:38] LABS: INR 0.9 (0.9-1.1); Partial Thromboplastin Ratio 0.9; Partial Thromboplastin Time 24 Seconds (21-31); Prothrombin Time 10.3 Seconds (9.0-12.0)
[2024-05-05 15:41] LABS: Appearance Urine Clear (Clear); Bilirubin Urine Negative (Negative); Blood Urine Negative (Negative); Color Urine Yellow; Glucose Urine UA Negative (Negative); Ketones Urine Negative (Negative); Leukocyte Esterase Urine Negative (Negative); Nitrite Urine Negative (Negative); Protein Urine Negative (Negative); Specific Gravity Urine 1.008 (1.000-1.030); Urobilinogen Urine Negative (Negative); pH Urine 7.5 (4.5-7.5)
[2024-05-05 15:44] LABS: Albumin Globulin Ratio 1.5 (0.9-2); Albumin Level 4.3 gm/dl (3.4-5.0); BUN Creatinine Ratio 31.8 (10-20); Bilirubin,Total 0.3 mg/dl (0.2-1.0); Calcium 9.9 mg/dl (8.6-10.3); Creatinine Clr Calc Pharmacy 73.3 ml/min; Est GFR (African American) 99.5 ml/min; Est GFR (Non-African American) 85.8 ml/min; Globulin 2.8 gm/dl (2.5-4.0); Magnesium 2.1 mg/dl (1.7-2.4); Potassium 3.9 mmol/L (3.5-5.1); Total Protein 7.1 gm/dl (6.0-8.3)
--- NOTE | 2024-05-05 15:58 | History & Physical Report ---
Date of Service May 05, 2024 Assessment & Plan (1) Acute ischemic stroke: (2) Acute stroke of basal ganglia: (3) Hypertension: (4) Atrial fibrillation: (5) Pre-diabetes: (6) Elevated cholesterol: Plan: Ms. James is a 78 year old female that presents to the ED with stroke like symptoms. She has a R sided facial droop. [facility] Telestroke consult with Dr. Gil indicated that there would not be any intervention with clot retrieval. MRA and brain MRI obtained. Her symptoms have been waxing and waning with her symptoms; LKW 05/04 @ 1700. PMH includes: pAF (not on anticoagulation), DM2, HTN and HLD. Reports intolerance to beta-nadia therapy as well as aspirin sensitivity related to easy bruising. Declines prescription of beta-nadia therapy and/or anticoagulation today. Patient follows with cardiology for paf that started in 2019 in the setting of covid. She was seen by an EP doctor in [facility] who recommended oral anticoagulation Last month she suffered a horse cart accident related injury as she was thrown about 5 feet and landed on her right side. Head CT: R SDH 03/20/[address] on 04/03 s/p fall. Head CT head/brain from 03/20/24: Stable right parafalcine subdural hematoma. Brother of a major spontaneous hemorrhage. She took her Valsartan this morning and her Clonidine patch was taken off today. Ultimately, patient with a basal ganglia acute stroke. Typically we would prescribe dual antiplt medications and statin medications. She was quite resistant to any medications or treatment to prevent further worsening or new additional strokes. She was very clear that she has taken statins before with poor tolerance. She has HTN 179/85 which we would allow permissive HTN. Neurology consult placed and she was receptive to PT/OT. She would prefer to be seen by Cardiology for a watchman procedure for which she would likely be receptive to taking short term anticoagulation. She has stated that she has persistent HTN and takes her Valsartan and Clonidine consistently. We were able talk to the patients daughter Jordyn at [phone] who is also a practicing anesthesiologist would like assistance with her seeing a clinical unit coordinator for evaluation. Pt daughter was able to speak with patient who then became receptive to starting Crestor only. She was receptive of taking a baby asa Q 48 hours. Acute ischemic stroke of right basal ganglia/right frontal lobe mendoza radiata Uncontrolled HTN: Acute Presents to ED today with strokelike symptoms LK 05/04 1700 Telestroke consult with [facility] no intervention with clot retrieval Head CT: Acute to subacute appearing 2 cm right frontal lobe mendoza radiata and basal ganglia infarct is new from 03/20/2024. (-) ICH or MLS. Brain MRI confirmation of acute 2 cm infarct in the right frontal lobe mendoza radiata and right basal ganglia Head neck MRI shows blood vessel patency without high-grade stenosis Patient resistant to treatment due to insensitivities (easy bruising) from ASA. Refuses A/C at this time. Suspect stroke secondary to elevated blood pressure Takes valsartan and clonidine at baseline; continue clonidine for now Patient is not on any anticoagulation or lipid-lowering agent Patient receptive of taking a baby aspirin every 48 hours only Further conversation; patient receptive to Crestor only; ordered She has been on HCTZ, Aldactone, and Amlodipine in the past which she is not receptive with due to previous swelling and facial hair growth. She is not receptive of CCB's. ECHO ordered PT/OT ordered Passed dysphagia screen; heart healthy diet ordered Neurology consult placed History of SDH: Acute 03/20 Suffered a SDH secondary to a horse cart tipping over on 03/20/[address] Paroxysmal A-fib: H/O ecchymosis: Chronic Secondary to COVID diagnosed in 2019 She was seen by an EP physician in [place] who recommended she start oral anticoagulation; patient declines Reports easy bruising; has not had any heme work up; patient brother from a spontaneous ICH in his 50s. Goal is to see cardiology to discuss treatment options including ablation Cardiology consult placed Disposition: PCP: Dr. Dueñas Code Status: Full Code VTE Prophylaxis: Teds and SCDs for now I spent a total of 87 minutes coordinating, documenting, and providing care for this patient excluding time spent in the performance of separately billed services. All of the aforementioned completed while collaborating with the assigned attending physician for a full treatment plan. Please see their addendum for further details. History of Present Illness Chief Complaint: stroke like symptoms Primary Care Provider: Nikolai Tellez MD Ms. James is a 78 year old female that presents to the ED with stroke like symptoms. She has a R sided facial droop. [facility] Telestroke consult with Dr. Gil indicated that there would not be any intervention with clot retrieval. MRA and brain MRI obtained. Her symptoms have been waxing and waning with her symptoms; JIGNA 05/04 @ 1700. PMH includes: pAF (not on anticoagulation), DM2, HTN and HLD. Reports intolerance to beta-nadia therapy as well as aspirin sensitivity related to easy bruising. Declines prescription of beta-nadia therapy and/or anticoagulation today. Patient follows with cardiology for paf that started in 2019 in the setting of covid. She was seen by an EP doctor in [facility] who recommended oral anticoagulation Has not been able to get in to see Transfer Controller here ; Dr. Contreras. 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 Last month she suffered a head injury. The patient is a 78-year-old female who arrives for evaluation of a horse accident. This started about 6 PM tonight and is described as being thrown onto her right side from a horse drawn cart. Patient states that she has been involved with horses for about 40 years. She has never had a prior accident like this. The horse was blocking and she noted the cart tipped over and she was thrown about 5 feet and landed on her right side. Current NIH 0-1 03/20/2024 she sustained a fall from horse cart, + hit head, no LOC. R SDH 03/20/[address] on 04/03 s/p fall. Head CT head/brain from 03/20/24: Stable right parafalcine subdural hematoma. Brother of a major spontaneous hemorrhage. She took her Valsartan this morning and her Clonidine patch was taken off today. Todays imaging: Head CT: 1. Acute to subacute appearing 2 cm right frontal lobe mendoza radiata and basal ganglia infarct is new from 03/20/2024. 2. No acute intracranial hemorrhage or midline shift. Brain MRI: Confirmation of the acute 2 cm infarct in the right frontal lobe mendoza radiata and right basal ganglia. Head/Neck MRA shows blood vessel patency; without high grade stenosis. Pt denies Hernandez, visual or auditory changes, changes in thought, mood or memory, seizure like activity, chest pain, palpitations, dyspnea, hematochezia or dysuria. Ultimately, patient with a basal ganglia acute stroke. Typically we would prescribe dual antiplt medications and statin medications. She was quite resistant to any medications or treatment to prevent further worsening or new additional strokes. She was very clear that she has taken statins before with poor tolerance. She has HTN 179/85 which we would allow permissive HTN. Neurology consult placed and she was receptive to PT/OT. She would prefer to be seen by Cardiology for a watchman procedure for which she would likely be receptive to taking short term anticoagulation. She has stated that she has persistent HTN and takes her Valsartan and Clonidine consistently. We were able talk to the patients daughter Jordyn at [phone] who is also a practicing anesthesiologist would like assistance with her seeing a clinical unit coordinator for evaluation. Pt daughter was able to speak with patient who then became receptive to starting Crestor only. She was receptive of taking a baby asa Q 48 hours. She has been on HCTZ, Aldactone, and Amlodipine in the past which she is not receptive with due to previous swelling and facial hair growth. She is not receptive of CCB's. Patient will be admitted for further evaluation and management of her acute stroke with a baby aspirin every 48 hours with continuing her HTN medications. Please see A/P for further details. Allergies Allergy/AdvReac Type Severity Reaction Status Date / Time Beta-Blockers Allergy Severe Anaphylaxis Verified 02/16/24 08:43 (Beta-Adrenergic Bloc Iodinated Contrast Media Allergy Severe pt reports Verified 05/05/24 16:36 hives vancomycin Allergy Severe Anaphylaxis Verified 05/05/24 16:34 amoxicillin [From Amoxil] Allergy Intermediate Rash Verified 02/16/24 08:43 ampicillin Allergy Intermediate Skin rash Verified 05/05/24 16:34 metoprolol Allergy Difficulty Verified 05/05/24 16:38 Breathing atenolol AdvReac Wheezing Verified 05/05/24 16:33 Esokjao-KPR-FeE Reductase AdvReac Muscle Pain Verified 05/05/24 16:36 Inhibitor TDAP Allergy Unknown Uncoded 05/05/24 16:38 Home Medications Medication Instructions Recorded Confirmed Type cholecalciferol (vitamin D3) 50 50 mcg PO AMHS 11/03/20 05/05/24 History mcg (2,000 unit) capsule clonidine 0.2 mg/24 hr weekly 1 patch transdermal WK 12/04/21 05/05/24 History transdermal patch valsartan 160 mg tablet (Diovan) 160 mg PO QAM 12/04/21 05/05/24 History ascorbic acid (vitamin C) 1,000 mg 1 g PO AMHS 03/19/24 05/05/24 History tablet (Vitamin C) acetaminophen 325 mg tablet 975 mg PO Q6 PRN Pain (Scale Score 05/05/24 05/05/24 History 1-3) esomeprazole magnesium 20 mg 20 mg PO DAILYBB 05/05/24 05/05/24 History tablet,delayed release vits no.124-ferrous fum 1 tab PO QAM 05/05/24 05/05/24 History 27 mg iron-folic acid 800 mcg tablet ( Vitamin) Past Med/Surg History Problem List (Updated 05/05/24 @ 20:45 by Rancho Plasencia MD) Acute stroke of basal ganglia Acute ischemic stroke Elevated cholesterol Atrial fibrillation Paroxysmal, onset after COVID 10/2019 - no recent issues/no anticoagulation SR with PACs on recent ECG 02/20/23 Acute stroke due to embolism of basilar artery Abnormal brain CT (Acute) Abnormal brain MRI (Acute) Aphasia (Acute) Stroke-like symptom (Acute) Lumbar radicular pain Spinal stenosis of lumbar region Sacroiliitis Sciatica Tear of gluteus medius tendon Leg length discrepancy Status post revision of total hip (~02/2023) Pre-diabetes Pt denies DM diagnosis Most recent A1C 12/2020 6.9% A-fib Hypertension Elevated fasting glucose Urinary urgency Breast cancer screening Postmenopausal HRT (hormone replacement therapy) Health care maintenance Encounter for pre-operative examination Status post left knee replacement (~01/2022) Achilles tendinitis Medical History Stress incontinence Hx of basal cell carcinoma History of COVID-19 10/2019> developed a. fib + cardiomyopathy Elevated cholesterol Osteoarthritis GERD (gastroesophageal reflux disease) controlled, stable per pt Neuropathy BLE Mitral valve regurgitation "slight, EF 68%" per pt, reports echo completed 2 yrs ago-not available for review Atrial fibrillation Paroxysmal, onset after COVID 10/2019 - no recent issues/no anticoagulation SR with PACs on recent ECG 02/20/23 Hypertension Surgical History Hx of bilateral breast reduction surgery History of total knee replacement Left TKA (01/22/22): Epidural at L3/4 + [facility] at [facility] *Specific anesthesia use requests made by patient prior to surgery* History of partial hysterectomy History of tonsillectomy and adenoidectomy Hx of LASIK History of esophagogastroduodenoscopy (EGD) History of colonoscopy History of root canal procedure History of tooth extraction History of total hip replacement RT History of repair of ACL LEFT History of total shoulder replacement LEFT Family History Father Pancreatic cancer Grandmother (Maternal) Breast cancer Other No family history of adverse response to anesthesia Denies family history of Ovarian cancer Prostate cancer Myocardial infarction Colorectal cancer Social History Smoking Status: Never smoker Second Hand Exposure: Yes ( A CHILD); Do You Dip or Chew Tobacco: No; Hx Alcohol Use: Yes Alcohol type: wine Hx Substance Use: No Preferred Language: Urdu Communication Ability: Effective Noc Engineer Required: No Beliefs That Will Affect Care: None marital status: Current Living Situation: Alone current occupational status: employed current occupation: anesthesiologist - [employer] How many Children do You have: 3 How many Children do You have Comment: 2 boys live in [place] Feels Safe at Home: Yes Diet: regular during the past year weight has: remained stable Physical Activity Frequency: Daily Sunscreen Use: Yes Assistive Devices: Cane and Walker Review of Systems Review of Systems: Neuro: (-) Falls, trauma, slurred speech HEENT: (-) HERNANDEZ, dizziness, dysphagia, visual or auditory changes CV: (-) CP, palpitations, swelling Resp: (-) SOB GI: (-) appetite changes, N/V/D, bowel changes : (-) urinary changes Skin: (-) rashes Psych: (-) anxiety, depression Physical Exam Physical Exam: Neuro: AAOx4, PERRLA, no aphagia, memory changes, CNII-XII grossly intact HEENT: head normocephalic, moist mucus membranes CV: S1/S2, (-) M/G/R, (-) edema, cap refill < 3 seconds Resp: Lungs CTA in all [place]. On RA GI: Abdomen S/NT/ND, Ax4 bowel sounds, (-) CVA tenderness Musculoskeletal: 5/5 B/L UE strength, 5/5 B/L LE strength. No gait disturbance Skin: (-) rashes , (-) erythema. Psych: euthymic mood Results & Data Results & Data Vital Signs (Past 12 Hours) Vital Signs Temp Pulse Pulse Resp BP BP Pulse Ox 05/05/24 15:28 73 22 174/106 H 98 05/05/24 15:00 98 05/05/24 15:00 36.5 C 77 18 172/96 H 98 O2 Del Method 05/05/24 15:28 Room Air 05/05/24 15:00 Room Air 05/05/24 15:00 Room Air Laboratory Results Short CBC 05/05/24 Range/Units 15:03 WBC 8.38 (4.8-10.8) K/ul Hgb 12.8 (12.0-16.0) g/dl Hct 39.0 (37.0-47.0) % Plt Count 273 (130-400) K/uL BMP 05/05/24 15:03 Sodium 137 Potassium 3.9 Chloride 102 Carbon Dioxide 29 BUN 21 Creatinine 0.66 Glucose 166 H Calcium 9.9 Liver Function 05/05/24 Range/Units 15:03 Total Bilirubin 0.3 (0.2-1.0) mg/dl AST 18 (13-39) U/L ALT 14 (7-52) U/L Alkaline Phosphatase 73 (34-104) U/L Albumin 4.3 (3.4-5.0) gm/dl Urine 05/05/24 Range/Units 15:15 Urine Color Yellow Urine Appearance Clear (Clear) Urine pH 7.5 (4.5-7.5) Ur Specific [place] 1.008 (1.000-1.030) Urine Protein Negative (Negative) Urine Glucose (UA) Negative (Negative) Diagnostic Findings Chest X-Ray 05/05/24 14:45 XR chest 1V portable HISTORY: 78 years-old Female neuro deficit, acute stroke suspected acute strokelike symptoms COMPARISON: 03/20/2024 TECHNIQUE: AP view the chest FINDINGS: Cardiac silhouette is enlarged. Pulmonary vascular congestion with mild bibasilar densities. No pneumothorax. Degenerative changes of the spine and right shoulder. Cervical spinal fusion hardware. Left shoulder arthroplasty. IMPRESSION: 1. Cardiomegaly with pulmonary vascular congestion. 2. Mild bibasilar densities favor atelectasis. ACT 112: Negative or not required by law. The above report was generated using voice recognition software. It may contain grammatical, syntax or spelling errors. Electronically signed by: Nicolas Morgan M.D. 05/05/2024 3:[address] 05/05/24 14:45 CT head/brain wo con CLINICAL HISTORY: 78 years-old Female with neuro deficit, acute stroke suspected. Acute short symptoms TECHNIQUE: Multiple axial CT images of the head were obtained without contrast. A dose lowering technique was utilized adhering to the principles of ALARA. CT DOSE: 625.8 mGy.cm COMPARISON: 03/20/2024 FINDINGS: No acute intracranial hemorrhage, midline shift, intracranial mass, hydrocephalus, territorial ischemia or abnormal extra-axial collection. Involutional changes with microvascular ischemic disease. Ill-defined area of decreased attenuation within the right frontal lobe mendoza radiata extending into the caudate and lentiform nuclei measures up to 2 cm on image 13 series 2, new from prior. This may also involve the anterior limb internal capsule. Study is mildly motion degraded. The calvarium is intact. The paranasal sinuses, mastoid air cells, and middle ear cavities are clear. IMPRESSION: 1. Acute to subacute appearing 2 cm right frontal lobe mendoza radiata and basal ganglia infarct is new from 03/20/2024. 2. No acute intracranial hemorrhage or midline shift. ACT 112: Negative or not required by law. The above report was generated using voice recognition software. It may contain grammatical, syntax or spelling errors. Electronically signed by: Nicolas Morgan M.D. 05/05/2024 3:21 PM Brain MRI 05/05/24 15:11 MR brain wo con HISTORY: 78 years-old Female acute stroker like SS acute strokelike symptoms COMPARISON: PET/CT examination TECHNIQUE: Multiplanar multisequence MRI of the brain was obtained without IV contrast. FINDINGS: No acute intracranial hemorrhage, midline shift, intracranial mass, hydrocephalus, territorial ischemia or abnormal extra-axial collection. Involutional changes with minimal microvascular ischemic disease. Restricted diffusion within the right frontal lobe mendoza radiata extending into the caudate and lentiform nuclei measures up to 2 cm on image 15 series 3, also noted on the head CT of same day. This infarct also involves the anterior limb internal capsule. Study is mildly motion degraded. The calvarium is intact. The paranasal sinuses, mastoid air cells, and middle ear cavities are clear. Cerebral venous sinuses and major arterial flow voids appear patent. IMPRESSION: Confirmation of the acute 2 cm infarct in the right frontal lobe mendoza radiata and right basal ganglia. ACT 112: Negative or not required by law. The above report was generated using voice recognition software. It may contain grammatical, syntax or spelling errors. Electronically signed by: Nicolas Morgan M.D. 05/05/2024 5:09 PM Head MRA 05/05/24 15:11 MR angio head wo con, MR angio neck wo con HISTORY: 78 years-old Female acute stroker like SS acute strokelike symptoms COMPARISON: Head CT and brain MRI of same day TECHNIQUE: MRA of the head and neck was obtained without IV contrast. All measurements were obtained according to NASCET criteria. 3-D coronal and sagittal measurements were obtained and transmitted review. FINDINGS: The neck portion of the study is motion degraded. Tortuosity of the internal carotid arteries with mild multifocal stenoses. The vertebral arteries are also tortuous with multifocal mild to moderate stenosis. No aneurysm, dissection, high-grade stenosis or arterial occlusion identified within the head or neck. IMPRESSION: Unremarkable MRA of the head and neck. ACT 112: Negative or not required by law. The above report was generated using voice recognition software. It may contain grammatical, syntax or spelling errors. Electronically signed by: Nicolas Morgan M.D. 05/05/2024 5:13 PM Neck MRA 05/05/24 15:11 MR angio head wo con, MR angio neck wo con HISTORY: 78 years-old Female acute stroker like SS acute strokelike symptoms COMPARISON: Head CT and brain MRI of same day TECHNIQUE: MRA of the head and neck was obtained without IV contrast. All measurements were obtained according to NASCET criteria. 3-D coronal and sagittal measurements were obtained and transmitted review. FINDINGS: The neck portion of the study is motion degraded. Tortuosity of the internal carotid arteries with mild multifocal stenoses. The vertebral arteries are also tortuous with multifocal mild to moderate stenosis. No aneurysm, dissection, high-grade stenosis or arterial occlusion identified within the head or neck. IMPRESSION: Unremarkable MRA of the head and neck. ACT 112: Negative or not required by law. The above report was generated using voice recognition software. It may contain grammatical, syntax or spelling errors. Electronically signed by: Nicolas Morgan M.D. 05/05/2024 5:13 PM Code Status & VTE Plan Code Status Full Code in the event of cardiac or respiratory arrest VTE Prophylaxis Plan VTE Prophylaxis will be ordered: Yes Supervising Physician Co-Signing Physician Notes Patient was seen and examined with Viola GRAVES at bedside. Chart reviewed. Case discussed with Viola GRAVES and agree with the documentation above. 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 Seen by teleneuro and out of window for TNK. She reported symptoms have resolved during our encounter. Stroke likely from uncontrolled hypertension. Discussed about further stroke work up and use of antiplatelet and statin. She was very resistant to the idea despite discussion. Spoke to her daughter over the phone who is also an anesthesiologist. Patient was finally agreeable to aspirin but only once every 2 days and only low dose crestor. BP still uncontrolled but now more than 24 hrs from last well known time and hence will gradually control to goal. Will replace clonidine patch. Continue valsartan. Might add HCTZ in am. States she did not like CCB due to ankle edema and aldactone due to hypertrichosis. Neurology eval, echo, lipid panel, HA1c tele, PT OT eval. Does have PAF not on anticoagulation and daughter requesting cardio eval for possible Watchman procedure and other management. Rest as per the note above.
[2024-05-05] MEDS ORDERED: ALUMINUM/MAGNESIUM SUSP 30 ML UDC PO PRN (16:01)
[2024-05-05] MEDS ORDERED: ONDANSETRON INJ 2 MG/ML 2 ML VIAL IV PRN (16:01)
[2024-05-05] MEDS ORDERED: POLYETHYLENE (MIRALAX) 17 GM PACK PO PRN (16:01)
[2024-05-05] MEDS ORDERED: MAGNESIUM HYDROXIDE SUSP 30 ML UDC PO PRN (16:01)
[2024-05-05] MEDS ORDERED: ACETAMINOPHEN 325 MG TAB PO PRN (16:01)
[2024-05-05] MEDS ORDERED: PHARMACIST DISCHARGE MED REC CONSULT PRN (16:01)
--- NOTE | 2024-05-05 17:11 | Magnetic Resonance Report ---
MR brain wo con HISTORY: 78 years-old Female acute stroker like SS acute strokelike symptoms COMPARISON: PET/CT examination TECHNIQUE: Multiplanar multisequence MRI of the brain was obtained without IV contrast. FINDINGS: No acute intracranial hemorrhage, midline shift, intracranial mass, hydrocephalus, territorial ischem ia or abnormal extra-axial collection. Involutional changes with minimal microvascular ischemic disea se. Restricted diffusion within the right frontal lobe mendoza radiata extending into the caudate and lentiform nuclei measures up to 2 cm on image 15 series 3, also noted on the head CT of same day. Thi s infarct also involves the anterior limb internal capsule. Study is mildly motion degraded. The calvarium is intact. The paranasal sinuses, mastoid air cells, and middle ear cavities are clear. Cerebral venous sinuses and major arterial flow voids appear patent. IMPRESSION: Confirmation of the acute 2 cm infarct in the right frontal lobe mendoza radiata and right basal ganglia. ACT 112: Negative or not required by law. The above report was generated using voice recognition software. It may contain grammatical, syntax o r spelling errors. Electronically signed by: Nicolas Morgan M.D. 05/05/2024 5:09 PM
--- NOTE | 2024-05-05 17:16 | Magnetic Resonance Report ---
MR angio head wo con, MR angio neck wo con HISTORY: 78 years-old Female acute stroker like SS acute strokelike symptoms COMPARISON: Head CT and brain MRI of same day TECHNIQUE: MRA of the head and neck was obtained without IV contrast. All measurements were obtained according to NASCET criteria. 3-D coronal and sagittal measurements were obtained and transmitted rev iew. FINDINGS: The neck portion of the study is motion degraded. Tortuosity of the internal carotid arteries with mi ld multifocal stenoses. The vertebral arteries are also tortuous with multifocal mild to moderate mihir nosis. No aneurysm, dissection, high-grade stenosis or arterial occlusion identified within the head or neck. IMPRESSION: Unremarkable MRA of the head and neck. ACT 112: Negative or not required by law. The above report was generated using voice recognition software. It may contain grammatical, syntax o r spelling errors. Electronically signed by: Nicolas Morgan M.D. 05/05/2024 5:13 PM
[2024-05-05] MEDS: ASPIRIN 81 MG CHEW PO ONE (17:43)
[2024-05-05] MEDS: ROSUVASTATIN CALCIUM 10 MG TAB PO SCH (20:31)
[2024-05-05] MEDS: CHOLECALCIFEROL 25 MCG (1000 UNITS) TAB PO SCH (20:31)
[2024-05-05] MEDS: ASCORBIC ACID 500 MG TAB PO SCH (20:32)
[2024-05-05] MEDS: CHECK CLONIDINE PATCH PLACEMENT SCH (23:34)
[2024-05-06] MEDS ORDERED: CHECK CLONIDINE PATCH PLACEMENT SCH
[2024-05-06] MEDS: PANTOprazole 40 MG TAB PO SCH (06:06)
[2024-05-06] MEDS: VALSARTAN 80 MG TAB PO SCH (08:39)
--- NOTE | 2024-05-06 14:12 | Neurology Consultation ---
Date of Consultation May 06, 2024 Assessment & Plan (1) Acute stroke of basal ganglia: A 78 year old female with Hx of PAF not on anticoagulation due to SDH and personal preference, HTN, and HLD presenting with acute onset slurred speech and left facial droop secondary to acute right MCA ischemic stroke which appears small vessel in etiology (atherosclerotic). NIHSS 3. Symptoms have improved. Patient declines anticoagulation or NOAC in setting of PAF. Agree with cardiology consult for watchmen device. Recommend to continue ASA 81 mg daily and Crestor (intolerance to some statins). Encourage importance of blood pressure control for 2ndary stroke prevention. SBP< 140, DBP< 90 mm Hg. HA1c< 7. LDL < 70. PT/OT/SS. Ok to discharge from Neuro standpoint if blood pressures well controlled. Outpatient followup with Neuro and cardiology. History of Present Illness Reason for Consultation: Acute right MCA stroke Requesting Physician: Dr. Sb Saldana Attending Physician: Shana Basurto MD History of Present Illness Patient location: ED. I was not in a hospital or clinic location. After connecting through [employer], patient was identified by name and date of and/or wristband checked. Patient (or authorized legal development representative) was then informed that this was a Telemedicine visit and being conducted confidentially over secure lines. My office door was closed. No one else was in the room with me. Patient acknowledged consent and understanding of privacy and security of the Telemedicine visit, and gave permission to have a telemedicine presenter stay in the room in order to assist with the history and to conduct the exam as needed. I informed the patient that I have reviewed their record in [employer] and presented the opportunity for them to ask any questions regarding the visit today. The patient agreed to participate. I communicated with the patient for 30 minutes via televideo. A 78 year old female with Hx of traumatic SDH, PAF not on anticoagulation due to interolance / personal preference, HTN, and HLD presented to ED yesterday for slurred speech and facial droop. Symptoms had been ongoing for roughly 1 days. Did not recieve IV TNK. MRA showed no high grade stensois or LVO. MRI brain confirmed acute right basal ganglia / mendoza radiata ischemic stroke. She reports improvement in her left sided weakness and speech. Denies any new or worsening symptoms. Does not wish to start NOAC. Allergies Allergy/AdvReac Type Severity Reaction Status Date / Time Beta-Blockers Allergy Severe Anaphylaxis Verified 02/16/24 08:43 (Beta-Adrenergic Bloc Iodinated Contrast Media Allergy Severe pt reports Verified 05/05/24 16:36 hives vancomycin Allergy Severe Anaphylaxis Verified 05/05/24 16:34 amoxicillin [From Amoxil] Allergy Intermediate Rash Verified 02/16/24 08:43 ampicillin Allergy Intermediate Skin rash Verified 05/05/24 16:34 metoprolol Allergy Difficulty Verified 05/05/24 16:38 Breathing atenolol AdvReac Wheezing Verified 05/05/24 16:33 [id number] Reductase AdvReac Muscle Pain Verified 05/05/24 16:36 Inhibitor TDAP Allergy Unknown Uncoded 05/05/24 16:38 Home Medications Medication Instructions Recorded Confirmed Type cholecalciferol (vitamin D3) 50 50 mcg PO AMHS 11/03/20 05/05/24 History mcg (2,000 unit) capsule clonidine 0.2 mg/24 hr weekly 1 patch transdermal WK 12/04/21 05/05/24 History transdermal patch valsartan 160 mg tablet (Diovan) 160 mg PO QAM 12/04/21 05/05/24 History ascorbic acid (vitamin C) 1,000 mg 1 g PO AMHS 03/19/24 05/05/24 History tablet (Vitamin C) acetaminophen 325 mg tablet 975 mg PO Q6 PRN Pain (Scale Score 05/05/24 05/05/24 History 1-3) esomeprazole magnesium 20 mg 20 mg PO DAILYBB 05/05/24 05/05/24 History tablet,delayed release vits no.124-ferrous fum 1 tab PO QAM 05/05/24 05/05/24 History 27 mg iron-folic acid 800 mcg tablet ( Vitamin) Patient History Medical History Stress incontinence Hx of basal cell carcinoma History of COVID-19 10/2019> developed a. fib + cardiomyopathy Elevated cholesterol Osteoarthritis GERD (gastroesophageal reflux disease) controlled, stable per pt Neuropathy BLE Mitral valve regurgitation "slight, EF 68%" per pt, reports echo completed 2 yrs ago-not available for review Atrial fibrillation Paroxysmal, onset after COVID 10/2019 - no recent issues/no anticoagulation SR with PACs on recent ECG 02/20/23 Hypertension Surgical History Hx of bilateral breast reduction surgery History of total knee replacement Left TKA (01/22/22): Epidural at L3/4 + PNB at [facility] *Specific anesthesia use requests made by patient prior to surgery* History of partial hysterectomy History of tonsillectomy and adenoidectomy Hx of LASIK History of esophagogastroduodenoscopy (EGD) History of colonoscopy History of root canal procedure History of tooth extraction History of total hip replacement RT History of repair of ACL LEFT History of total shoulder replacement LEFT Family History Father Pancreatic cancer Grandmother (Maternal) Breast cancer Other No family history of adverse response to anesthesia Denies family history of Ovarian cancer Prostate cancer Myocardial infarction Colorectal cancer Social History Smoking Status: Never smoker Second Hand Exposure: Yes ( A CHILD); Do You Dip or Chew Tobacco: No; Hx Alcohol Use: No Hx Substance Use: No Preferred Language: Mexican Communication Ability: Effective Chief Client Officer Required: No Beliefs That Will Affect Care: None marital status: Current Living Situation: Significant Other current occupational status: employed current occupation: anesthesiologist - [employer] How many Children do You have: 3 How many Children do You have Comment: 2 boys live in [place] Feels Safe at Home: Yes Diet: regular during the past year weight has: remained stable Physical Activity Frequency: Daily Sunscreen Use: Yes Assistive Devices: Cane and Walker Review of Systems Review of Systems: Negative except as noted above in HPI Physical Exam Constitutional: EXAM: Constitutional: appearance normally developed Face: normocephalic and atraumatic Eyes: normal lids, normal conjunctiva Neck: supple Respiratory: normal effort Abdomen: non distended Skin: no rashes, lesions, or ulcers noted Psychiatric: normal mood and normal affect NEUROLOGIC EXAMINATION: Appearance: no acute distress Orientation: awake, alert and oriented x 3 Mental Status: alert Attention: normal Knowledge: appropriate Language: no aphasia Speech: mild dysarthria Cranial Nerves: CN 2 - no visual defect on confrontation and pupils round, equal CN 3, 4, 6 - extra-ocular movements intact CN 5 - facial sensation intact CN 7 - left facial droop CN 8 - intact hearing CN 9, 10 - palate symmetric CN 11 - good shoulder shrug CN 12 - tongue midline Gait: deferred Coordination: no ataxia with finger to nose testing Sensory: intact and symmetric to light touch SEVERITY SCORES: [facility] [place] [facility] Stroke Scale: 1A. LOC: 0 1B. Question: 0 1C. Commands: 0 2. Gaze: 0 3. Visual Velasquez: 0 4. Facial Palsy: 2 5A. Arm Left: 0 5B. Arm Right: 0 6A. Leg Left: 0 6B. Leg Right: 0 7. Ataxia: 0 8. Sensory: 0 9. Aphasia: 0 10. Dysarthria: 1 11. Extinction: 0 Total: 3 Results & Data Vital Signs (Past 12 Hours) Vital Signs Temp Pulse Resp BP Pulse Ox O2 Del Method 05/06/24 08:44 37.0 C 70 16 175/92 H 96 Room Air 05/06/24 04:18 36.5 C 60 16 151/80 H 99 Room Air Laboratory Results UA Negative Diagnostic Findings MR angio head wo con, MR angio neck wo con HISTORY: 78 years-old Female acute stroker like SS acute strokelike symptoms COMPARISON: Head CT and brain MRI of same day TECHNIQUE: MRA of the head and neck was obtained without IV contrast. All measurements were obtained according to NASCET criteria. 3-D coronal and sagittal measurements were obtained and transmitted review. FINDINGS: The neck portion of the study is motion degraded. Tortuosity of the internal carotid arteries with mild multifocal stenoses. The vertebral arteries are also tortuous with multifocal mild to moderate stenosis. No aneurysm, dissection, high-grade stenosis or arterial occlusion identified within the head or neck. IMPRESSION: Unremarkable MRA of the head and neck. MR brain wo con HISTORY: 78 years-old Female acute stroker like SS acute strokelike symptoms COMPARISON: PET/CT examination TECHNIQUE: Multiplanar multisequence MRI of the brain was obtained without IV contrast. FINDINGS: No acute intracranial hemorrhage, midline shift, intracranial mass, hydrocephalus, territorial ischemia or abnormal extra-axial collection. Involutional changes with minimal microvascular ischemic disease. Restricted diffusion within the right frontal lobe mendoza radiata extending into the caudate and lentiform nuclei measures up to 2 cm on image 15 series 3, also noted on the head CT of same day. This infarct also involves the anterior limb internal capsule. Study is mildly motion degraded. The calvarium is intact. The paranasal sinuses, mastoid air cells, and middle ear cavities are clear. Cerebral venous sinuses and major arterial flow voids appear patent. IMPRESSION: Confirmation of the acute 2 cm infarct in the right frontal lobe mendoza radiata and right basal ganglia.
--- NOTE | 2024-05-06 16:01 | Communication Note ---
Date of Service: May 06, 2024 Patient's has many reservations with starting any new medications. Patient agreed to starting Coreg after discussing with cardiology for blood pressure control. Upon discussion with the patient, patient declines any anaphylactic reaction in the past with beta nadia but describes some wheezing with atenolol in the past. Patient denies any other beta-nadia use in the past. Patient specifically stated she has not used Coreg in the past. See understands the possiblity and risks of allergic reaction including anaphylactic reaction but would like to go ahead and continue with Coreg at this time as per her discussion w/ cardiology. She wants to go home today, she is very firm with this. So plan is to monitor her on Coreg for next 1 to 2 hours, if no symptoms patient will be discharged. same has been communicated to the patient and she is agreeable. She was also made aware to return to the emergency immediately if she had lightheadedness/chest pain/wheezing/abdominal pain/shortness of breath/other signs of anaphylactic reaction. She states that she understands and is agreeable to plan of care.
[2024-05-06] MEDS: carvediloL 6.25 MG TAB PO ONE (16:25)
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
[2024-05-06] MEDS ORDERED: STROKE PATIENT DISCHARGE STA (17:26)
--- NOTE | 2024-05-06 17:37 | Discharge Summary ---
Date of Service May 06, 2024 Admission HPI Per Admitting Provider Ms. James is a 78 year old female that presents to the ED with stroke like symptoms. She has a R sided facial droop. [facility] Telestroke consult with Dr. Gil indicated that there would not be any intervention with clot retrieval. MRA and brain MRI obtained. Her symptoms have been waxing and waning with her symptoms; LKW 05/04 @ 1700. PMH includes: pAF (not on anticoagulation), DM2, HTN and HLD. Reports intolerance to beta-nadia therapy as well as aspirin sensitivity related to easy bruising. Declines prescription of beta-nadia therapy and/or anticoagulation today. Patient follows with cardiology for paf that started in 2019 in the setting of covid. She was seen by an EP doctor in [facility] who recommended oral anticoagulation Has not been able to get in to see Electron Beam Operator here ; Dr. Contreras. 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 Last month she suffered a head injury. The patient is a 78-year-old female who arrives for evaluation of a horse accident. This started about 6 PM tonight and is described as being thrown onto her right side from a horse drawn cart. Patient states that she has been involved with horses for about 40 years. She has never had a prior accident like this. The horse was blocking and she noted the cart tipped over and she was thrown about 5 feet and landed on her right side. Current NIH 0-1 03/20/2024 she sustained a fall from horse cart, + hit head, no LOC. R SDH 03/20/[address] on 04/03 s/p fall. Head CT head/brain from 03/20/24: Stable right parafalcine subdural hematoma. Brother of a major spontaneous hemorrhage. She took her Valsartan this morning and her Clonidine patch was taken off today. Todays imaging: Head CT: 1. Acute to subacute appearing 2 cm right frontal lobe mendoza radiata and basal ganglia infarct is new from 03/20/2024. 2. No acute intracranial hemorrhage or midline shift. Brain MRI: Confirmation of the acute 2 cm infarct in the right frontal lobe cor rip radiata and right basal ganglia. Head/Neck MRA shows blood vessel patency; without high grade stenosis. Pt denies Turk, visual or auditory changes, changes in thought, mood or memory, seizure like activity, chest pain, palpitations, dyspnea, hematochezia or dysuria. Ultimately, patient with a basal ganglia acute stroke. Typically we would prescribe dual antiplt medications and statin medications. She was quite resistant to any medications or treatment to prevent further worsening or new additional strokes. She was very clear that she has taken statins before with poor tolerance. She has HTN 179/85 which we would allow permissive HTN. Neurology consult placed and she was receptive to PT/OT. She would prefer to be seen by Cardiology for a watchman procedure for which she would likely be receptive to taking short term anticoagulation. She has stated that she has persistent HTN and takes her Valsartan and Clonidine consistently. We were able talk to the patients daughter Jordyn at [phone] who is also a practicing anesthesiologist would like assistance with her seeing a line repairer tower for evaluation. Pt daughter was able to speak with patient who then became receptive to starting Crestor only. She was receptive of taking a baby asa Q 48 hours. She has been on HCTZ, Aldactone, and Amlodipine in the past which she is not receptive with due to previous swelling and facial hair growth. She is not receptive of CCB's. Patient will be admitted for further evaluation and management of her acute stroke with a baby aspirin every 48 hours with continuing her HTN medications. Please see A/P for further details. Admission Exam Per Admitting Provider Neuro: AAOx4, PERRLA, no aphagia, memory changes, CNII-XII grossly intact HEENT: head normocephalic, moist mucus membranes CV: S1/S2, (-) M/G/R, (-) edema, cap refill < 3 seconds Resp: Lungs CTA in all [place]. On RA GI: Abdomen S/NT/ND, Ax4 bowel sounds, (-) CVA tenderness Musculoskeletal: 5/5 B/L UE strength, 5/5 B/L LE strength. No gait disturbance Skin: (-) rashes , (-) erythema. Psych: euthymic mood Principal Diagnosis Acute ischemic stroke of right basal ganglia/right frontal lobe mendoza radiator Uncontrolled hypertension History of subdural hematoma History of paroxysmal A-fib not on anticoagulation by preference Discharge Exam GENERAL: Alert and oriented x3. NAD, on RA. Appears upset and is argumentative. HEENT: No pallor, no icterus. Pupils equal, round and reactive to light. Oral mucosa moist. NECK: No JVD, no neck masses. HEART: S1 and S2 heard. Regular rate and rhythm. No murmur, no gallop. RESPIRATORY SYSTEM: Normal AP diameter. No accessory muscle use. No wheezing, no crackles. ABDOMEN: Soft, bowel sounds present, nontender, no distention. CENTRAL NERVOUS SYSTEM: No facial droop. Speech is clear. Obeys simple commands. Moves extremities. EXTREMITIES: No edema, no erythema seen. Discharge Data Allergies Allergy/AdvReac Type Severity Reaction Status Date / Time Beta-Blockers Allergy Severe Anaphylaxis Verified 02/16/24 08:43 (Beta-Adrenergic Bloc Iodinated Contrast Media Allergy Severe pt reports Verified 05/05/24 16:36 hives vancomycin Allergy Severe Anaphylaxis Verified 05/05/24 16:34 amoxicillin [From Amoxil] Allergy Intermediate Rash Verified 02/16/24 08:43 ampicillin Allergy Intermediate Skin rash Verified 05/05/24 16:34 metoprolol Allergy Difficulty Verified 05/05/24 16:38 Breathing atenolol AdvReac Wheezing Verified 05/05/24 16:33 [id number] Reductase AdvReac Muscle Pain Verified 05/05/24 16:36 Inhibitor TDAP Allergy Unknown Uncoded 05/05/24 16:38 Consultations 05/05/24 15:58 ED Decision to Admit Stat 05/05/24 16:01 Consult Neurology Routine 05/05/24 16:03 Consult Neurology Routine 05/05/24 17:37 Consult Cardiology Routine Ordered Studies 05/05/24 14:45 CT head/brain wo con Stat 05/05/24 15:11 MR brain wo con Stat MRI Angio Brain [MR angio head wo con] Stat MRI Angio Neck [MR angio neck wo con] Stat Hospital Course (1) Acute ischemic stroke: (2) Acute stroke of basal ganglia: (3) Hypertension: (4) Atrial fibrillation: (5) Pre-diabetes: (6) Elevated cholesterol: Per Prior attending w/ addendum: Ms. James is a 78 year old female that presents to the ED with stroke like symptoms. She has a R sided facial droop. [facility] Telestroke consult with Dr. Gil indicated that there would not be any intervention with clot retrieval. MRA and brain MRI obtained. Her symptoms have been waxing and waning with her symptoms; LKW 05/04 @ 1700. PMH includes: pAF (not on anticoagulation), DM2, HTN and HLD. Reports intolerance to beta-nadia therapy as well as aspirin sensitivity related to easy bruising. Declines prescription of beta-nadia therapy and/or anticoagulation today. Patient follows with cardiology for paf that started in 2019 in the setting of covid. She was seen by an EP doctor in [facility] who recommended oral anticoagulation Last month she suffered a horse cart accident related injury as she was thrown about 5 feet and landed on her right side. Head CT: R SDH 03/20/[address] on 04/03 s/p fall. Head CT head/brain from 03/20/24: Stable right parafalcine subdural hematoma. Brother of a major spontaneous hemorrhage. She took her Valsartan this morning and her Clonidine patch was taken off today. Ultimately, patient with a basal ganglia acute stroke. Typically we would prescribe dual antiplt medications and statin medications. She was quite resistant to any medications or treatment to prevent further worsening or new additional strokes. She was very clear that she has taken statins before with poor tolerance. She has HTN 179/85 which we would allow permissive HTN. Neurology consult placed and she was receptive to PT/OT. She would prefer to be seen by Cardiology for a watchman procedure for which she would likely be re ceptive to taking short term anticoagulation. She has stated that she has persistent HTN and takes her Valsartan and Clonidine consistently. We were able talk to the patients daughter Jordyn at [phone] who is also a practicing anesthesiologist would like assistance with her seeing a line repairer tower for evaluation. Pt daughter was able to speak with patient who then became receptive to starting Crestor only. She was receptive of taking a baby asa Q 48 hours. Acute ischemic stroke of right basal ganglia/right frontal lobe mendoza radiata Uncontrolled HTN: Acute Presents to ED today with strokelike symptoms LKW 05/04 1700 Telestroke consult with [facility] no intervention with clot retrieval Head CT: Acute to subacute appearing 2 cm right frontal lobe mendoza radiata and basal ganglia infarct is new from 03/20/2024. (-) ICH or MLS. Brain MRI confirmation of acute 2 cm infarct in the right frontal lobe mendoza radiata and right basal ganglia Head neck MRI shows blood vessel patency without high-grade stenosis Patient resistant to treatment due to insensitivities (easy bruising) from ASA. Refuses A/C at this time. Suspect stroke secondary to elevated blood pressure Takes valsartan and clonidine at baseline; continue clonidine for now Patient is not on any anticoagulation or lipid-lowering agent Patient receptive of taking a baby aspirin every 48 hours only Further conversation; patient receptive to Crestor only; ordered She has been on HCTZ, Aldactone, and Amlodipine in the past which she is not receptive with due to previous swelling and facial hair growth. She is not receptive of CCB's. ECHO ordered PT/OT ordered Passed dysphagia screen; heart healthy diet ordered Neurology consult placed History of SDH: Acute 03/20 Suffered a SDH secondary to a horse cart tipping over on 03/20/[address] Paroxysmal A-fib: H/O ecchymosis: Chronic Secondary to COVID diagnosed in 2019 She was seen by an EP physician in [place] who recommended she start oral anticoagulation; patient declines Reports easy bruising; has not had any heme work up; patient brother from a spontaneous ICH in his 50s. Goal is to see cardiology to discuss treatment options including ablation Cardiology consult placed Disposition: PCP: Dr. Dueñas Code Status: Full Code VTE Prophylaxis: Teds and SCDs for now Addendum 05/06/2024: Patient was seen and examined at bedside as a follow-up of ischemic stroke and uncontrolled hypertension. Patient declines any new numbness or tingling or focal weakness today. Patient reports feeling better. PT/OT/speech have evaluated her and cleared her. Per RN, patient has been argumentative and has refused all the blood labs including cbc, bmp, mg, p, a1c, lipid profile today. Has refused IV lines as well needed for care in pcu/tele unit. patient was argumentative to me during my bedside exam as well. She did not want me to start any blood pressure medications or daily baby aspirin. She wanted neurology and cardiology evaluation as soon as possible and would like to go home today. She is very adamant on going home today. Discussed with neurology, patient agreeable for baby aspirin daily. Started baby aspirin. Discussed with cardiology, patient agreeable for Coreg 6.25 mg twice daily. Patient has been started on Coreg, patient confirmed that she had some wheezing with atenolol in the past but has not taken any other beta-nadia and did not have any anaphylactic reactions to beta-nadia in the past. Patient is willing to stay for about 1 to 2 hours after beta-nadia dose to make sure that she is not getting any allergic reaction and then would like to go home today. patient will be discharged with following instructions at the point of discharge if she does not have any respiratory distress or allergic reaction to Coreg. Follow-up with your primary care physician within a week time and likely you will need labs CBC/CMP/magnesium/phosphorus. Follow-up with neurology in 1 to 2 weeks time upon discharge. Follow-up with cardiology in 1 to 2 weeks time upon discharge. Cardiology evaluated you while in the hospital, with your consent you have been started on Coreg. Measure your blood pressure twice a day, maintain a log to take to your primary care physician for ongoing monitoring/management. You refused several blood tests including A1c and Lipid profile while in the hospital, recommend that you get those tests done at your PCP office during your next visit within a week time. Further management from your PCP evaluation. As discussed at the bedside, if you have any new numbness/tingling/weakness or any signs of anaphylactic reaction [lightheadedness/shortness of breath/wheezing/abdominal pain/chest tightness/chest pain] report to the emergency immediately. Take your medications as prescribed. Please make sure that you are able to get your medications today by calling your pharmacy before you leave the hospital so that your treatment continuity is not broken. Home Health Attestation I certify that this patient is under my care and that I, or a physicians tax accounting assistant working with me, had a face to-face encounter that meets the [id number] encounter requirements with this patient. The encounter with the patient was in whole, or in part, for the following medical condition, which is the primary reason for home health care (list medical condition): I certify that, based on my findings, the following services are medically necessary home health services: My clinical findings support the need for the above services because: Further, I certify that my clinical findings support that this patient is homebound (i.e. absences from home require considerable and taxing effort and are for medical reasons or adventist services or infrequently or of short duration when for other reasons) because: Certification for Home Health Services: Based on the above findings, I certify that this patient is confined to the home and needs intermittent [facility] care, physical therapy and/or speech therapy or continues to need occupational therapy. The patient is under my care, and I have initiated the establishment of the plan of care. This patient will be followed by a physician who will periodically review the plan of care. Total Time Total Time Spent Total Time Spent (In Minutes): 65 Discharge Plan Discharge Items Patient Disposition: Home - Self-Care Reason For Visit: STROKE LIKE SYMPTOMS Discharge Diagnosis: Acute ischemic stroke of right basal ganglia/right frontal lobe mendoza radiator Uncontrolled hypertension History of subdural hematoma History of paroxysmal A-fib not on anticoagulation by preference Activity: Resume your previous activity Non-emergency contact: Primary Care Provider Call non-emergency contact if: you have any medication questions and your symptoms worsen Follow-up/Referrals: Nikolai Tellez MD [Primary Care Provider] - Diet: Heart Healthy Addtl Attending Provider Instructions: Follow-up with your primary care physician within a week time and likely you will need labs CBC/CMP/magnesium/phosphorus. Follow-up with neurology in 1 to 2 weeks time upon discharge. Follow-up with cardiology in 1 to 2 weeks time upon discharge. Cardiology evaluated you while in the hospital, with your consent you have been started on Coreg. Measure your blood pressure twice a day, maintain a log to take to your primary care physician for ongoing monitoring/management. You refused several blood tests including A1c and Lipid profile while in the hospital, recommend that you get those tests done at your PCP office during your next visit within a week time. Further management from your PCP evaluation. As discussed at the bedside, if you have any new numbness/tingling/weakness or any signs of anaphylactic reaction [lightheadedness/shortness of breath/wheezing/abdominal pain/chest tightness/chest pain] report to the emergency immediately. Take your medications as prescribed. Please make sure that you are able to get your medications today by calling your pharmacy before you leave the hospital so that your treatment continuity is not broken. Pending Studies at Discharge: No Stand-Alone Forms: [employer], Smoking Cessation, Medications to Prevent Stroke Medications and DC Order Prescriptions: New rosuvastatin 10 mg Tablet 10 mg PO QAM Qty: 30 0RF aspirin 81 mg Tablet,Delayed Release (Dr/Ec) 81 mg PO HS Qty: 30 0RF carvedilol [Coreg] 6.25 mg tablet 6.25 mg PO BID Qty: 60 0RF Rx Instructions: must administer with a meal/food Continued cholecalciferol (vitamin D3) 50 mcg (2,000 unit) capsule 50 mcg PO AMHS valsartan [Diovan] 160 mg Tablet 160 mg PO QAM clonidine 0.2 mg/24 hr patch weekly 1 patch transdermal WK Rx Instructions: Apply weekly on Sundays Vitamin 27 mg iron- 800 mcg Tablet 1 tab PO QAM acetaminophen 325 mg Tablet 975 mg PO Q6 PRN (Reason: Pain (Scale Score 1-3)) esomeprazole magnesium 20 mg Tablet,Delayed Release (Dr/Ec) 20 mg PO DAILYBB ascorbic acid (vitamin C) [Vitamin C] 1,000 mg Tablet 1 g PO AMHS Discharge Orders: Discharge Order (Routine); Ordered 05/06/24 Ordered By: Sahna Basurto Admission Data Admit Date/Time: 05/05/24 16:01 Attending Provider: Shana Basurto Admit Provider: Rancho Plasencia Primary Care Provider: Nikolai Tellez Other Providers: Abimael Mancilla; Rancho Plasencia; Liana Brown
--- NOTE | 2024-05-06 18:59 | Hospitalist Progress Note ---
Date of Service May 06, 2024 Assessment & Plan (1) Acute ischemic stroke: (2) Acute stroke of basal ganglia: (3) Hypertension: (4) Atrial fibrillation: (5) Pre-diabetes: (6) Elevated cholesterol: Plan: 78 yo F w/ PMH of T2DM, HTN, Afib not on anticoagulation by preference presented to ED w/ stroke like symptoms and noted to be in hypertensive crises. She is being managed for the following: Acute ischemic stroke of right basal ganglia/right frontal lobe mendoza radiata Uncontrolled HTN: Presents to ED today with strokelike symptoms. LKW 05/04 1700. Telestroke [place] with [facility] no intervention with clot retrieval. Head and neck imaging reviewed: acute 2 cm infarct in the right frontal lobe mendoza radiata and right basal ganglia ECHO reviewed. d/w neuro, pt agreeable to baby aspirin daily. d/w cardio, pt agreeable to coreg 6.25 mg bid. Pt had declined care, iv line placement and blood draws in am. Per pt's insistence pt was discharged but Pt now agreeable to stay and get her BP under control, now agreeable for iv line Will send labs for in AM. prn hydrlazine for BP mx for now. c/w home clonidine and valsartan. c/w coreg 6.25 mg bid. PT/OT/Speech evaled, cleared her. c/w HH diet. History of SDH: 03/20 Suffered a SDH secondary to a horse cart tipping over on 03/20/[address] Paroxysmal A-fib: H/O ecchymosis: Chronic Secondary to COVID diagnosed in 2019 She was seen by an EP physician in [place] who recommended she start oral anticoagulation; patient declines Reports easy bruising; has not had any heme work up; patient brother from a spontaneous ICH in his 50s. Goal is to see cardiology to discuss treatment options including ablation, which has been discussed per cardio's eval 05/06 Disposition: PCP: Dr. Dueñas Code Status: Full Code VTE Prophylaxis: Teds and SCDs for now total time spent 93 minutes. Admission and Anticipated Discharge Date Admission Date: May 05, 2024 Subjective pt was seen and examined at bed side multiple times today. Pt had initially refused all care, labs and iv lines. finally agreed to baby aspirin daily after d/w neurologist and coreg 6.25 mg bid after d/w cardio. Her BP was still elevated and not under control. she was insistent on going home but later in the evening agreed to stay for BP control. She is now agreeable to iv hydralazine and placing iv line. Physical Exam Physical Exam: GENERAL: Alert and oriented x3. NAD, on RA. Appears upset and is argumentative. HEENT: No pallor, no icterus. Pupils equal, round and reactive to light. Oral mucosa moist. NECK: No JVD, no neck masses. HEART: S1 and S2 heard. Regular rate and rhythm. No murmur, no gallop. RESPIRATORY SYSTEM: Normal AP diameter. No accessory muscle use. No wheezing, no crackles. ABDOMEN: Soft, bowel sounds present, nontender, no distention. CENTRAL NERVOUS SYSTEM: No facial droop. Speech is clear. Obeys simple commands. Moves extremities. EXTREMITIES: No edema, no erythema seen. Results & Data Results & Data Vital Signs (Past 12 Hours) Vital Signs Temp Pulse Resp BP Pulse Ox O2 Del Method 05/06/24 17:17 68 177/98 H 98 Room Air 05/06/24 15:00 67 18 178/98 H 96 Room Air 05/06/24 08:44 37.0 C 70 16 175/92 H 96 Room Air
[2024-05-06] MEDS: ASPIRIN 81 MG ECTAB PO SCH (20:37)
--- NOTE | 2024-05-06 20:42 | Electrocardiogram Report ---
Test Reason : Blood Pressure : / mmHG Vent. Rate : 084 BPM Atrial Rate : 084 BPM P-R Int : 168 ms QRS Dur : 076 ms QT Int : 390 ms P-R-T Axes : 068 108 001 degrees QTc Int : 460 ms Sinus rhythm with occasional , and consecutive Premature atrial complexes Premature ventricular complexes Septal infarct , age undetermined Lateral infarct , age undetermined Nonspecific T wave abnormality Abnormal ECG When compared with ECG of 20-MAR-2024 01:11, Premature ventricular complexes are now Present Lateral infarct is now Present Inverted T waves have replaced nonspecific T wave abnormality in Inferior leads Premature atrial complexes are now Present Confirmed by Ishmael Samuels ([id number]) on 05/06/2024 8:42:41 PM Referred By: REFERRED SELF Confirmed By:Ishmael Samuels
[2024-05-07] MEDS: carvediloL 6.25 MG TAB PO SCH (08:18)
[2024-05-07] MEDS: hydrALAZINE HCL 20 MG/ML VIAL IV PRN ×2 (11:39→14:55)
--- NOTE | 2024-05-07 11:51 | Cardiology Progress Note ---
Date of Service May 07, 2024 Assessment & Plan (1) Acute ischemic stroke: (2) PAF (paroxysmal atrial fibrillation): (3) Hypertensive urgency: (4) Dyslipidemia, goal LDL below 70: Plan Recommendations: Initiate anticoagulation, apixaban (Eliquis) 5 mg twice a day, to reduce the risk of stroke and systemic embolism in a patient with symptomatic paroxysmal atrial fibrillation without history of mitral stenosis or mechanical valve replacement, [id number] Score 8 points. Risks and benefits discussed. Patient requests Neurology to weigh in on anticoagulation, and use of aspirin Continue carvedilol, rosuvastatin, valsartan, clonidine Outpatient referral to Dr. Peralta, RE: Ivan Cardiology office contacted as requested. Resting echocardiography scheduled for May has been canceled. Appointment with Dr. Contreras will be expedited. Consultation placed for Dr. Peralta, RE: Ivan. I spent a total of 41 minutes on the date of service in preparation, delivery, and documentation of the care provided to this patient excluding any time spent in the performance of separately billed services. This visit was a split-shared visit with the substantive portion of the medical decision making performed by the supervising photographer helper/billing provider. Admission and Anticipated Discharge Date Admission Date: May 05, 2024 Supervising Physician Co-Signing Physician Notes Patient was seen and personally examined. Care and management discussed in detail with advanced provider and personally endorsed. Discussed indications for anticoagulation in setting of paroxysmal atrial fibrillation, embolic stroke. Patient previously leery of medications but agreeable to anticoagulant with Eliquis while arrangements being made for ivan as above Office contacted to expedite care Would continue carvedilol as ordered, valsartan. Patient not likely to take rosuvastatin per her description I spent a total of 25 minutes on the date of service in preparation, delivery, and documentation of the care provided to this patient excluding any time spent in the performance of separately billed services. This visit was a split-shared visit with the substantive portion of the medical decision making performed by the supervising photographer helper/billing provider. Subjective Patient seen and examined. 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 History of symptomatic paroxysmal atrial fibrillation with last known symptomatic episode lasting a few minutes 7 to 10 days ago Also with longstanding hypertension with negative secondary workup per patient, diabetes mellitus, aortic plaque, mild carotid disease, [id number] Score 8 points + History of subdural hemorrhage and right flank hematoma following injuries No chest pain, tachypalpitations, unusual shortness of breath, orthopnea, PND, or peripheral edema Tolerating carvedilol, with past perceived intolerance to both atenolol and metoprolol Telemetry: Sinus in the 50's and 60's with occasional ectopy. Review of Systems Review of Systems: Complete Review of Systems is as stated above, negative, or noncontributory. Physical Exam Physical Exam: General: A&Ox3. NAD. HENT: Normocephalic. Atraumatic. Eyes: PER. Conjunctiva pink, sclera clear. Neck: No JVD. Heart: RRR. No murmur. Lungs: Diminished. Clear to auscultation. Abdomen: +BS. Extremities: No clubbing, cyanosis, or edema. Neuro: Facial droop, mild dysarthria Pulses: Posterior tibial=2/4. Results & Data Vital Signs (Past 12 Hours) Vital Signs Temp Pulse Resp BP Pulse Ox O2 Del Method 05/07/24 11:11 36.4 C L 61 18 172/100 H 95 Room Air 05/07/24 10:15 154/95 H 05/07/24 08:16 174/90 H 05/07/24 07:35 66 15 174/112 H 97 Room Air 05/07/24 04:12 60 18 161/81 H 96 Room Air Laboratory Results Intake and Output 05/06/24 05/07/24 05/07/24 22:59 06:59 14:59 Intake Total 220 / 320 100 / 320 Balance 220 / 320 100 / 320 Intake: Oral 220 / 320 100 / 320 Other: Weight 77.2 kg Weight Measurement Method Built in [facility]
--- NOTE | 2024-05-07 13:41 | Neurology Progress Note ---
Date of Service May 07, 2024 Assessment & Plan (1) Acute ischemic stroke: Recommend continued twice daily apixaban given hx of AFIB Agree with Cardiology recs, planned Watchman device implantation Recommend continued ASA and statin Continue to monitor for s/s of hemorrhage Continue frequent neurological assessments Obtain stat CT brain without contrast for any acute neurological decline Continue to monitor/control blood pressure & blood glucose Continue to monitor telemetry closely Continue to monitor renal and hepatic function, keep euvolemic Metabolic workup should include hgbA1c, fasting lipids, homocysteine, TSH, D Dimer, RPR, urinalysis Ok from neurology perspective for VTE prophylaxis PT/OT/SLT to eval and treat Recommend eval for NATE and consider outpatient polysomnography Follow up outpatient Neurology Subjective Telehealth Information I performed this visit using a real-time telehealth connection between my location and the patients location ([facility]). After connecting through interactive tele-video, patient was identified by name and date of and/or wristband check.Patient (or authorized healthcare banking representative) was informed that this was a telemedicine visit and it was being conducted confidentially over secure lines. My office door was closed and no one else was present in the room with me.Patient (or authorized healthcare banking representative) provided consent to proceed with the visit, expressed an understanding of privacy and security of the telemedicine visit, and gave permission to have a hospital banking representative in the room in order to assist with the visit and to conduct portions of the visit, as needed. I informed the patient (or authorized healthcare banking representative) that I reviewed their record and presented the opportunity for them to ask any questions regarding the visit today. The patient agreed to participate. 78yo female with hx HTN and hyperlipidemia as well as AFIB presented with new onset left facial asymmetry and dysarthria. She was found to have small area of right hemispheric ischemic stroke. Previously was recommend to undergo treatment with full anticoagulation but elected not to and notably has recently suffered a minor traumatic ICH. She is now agreeable to undergo full anticoagulation and ASA until watchman device is implanted. Agree with these recs and recommend continued antiplatelet and statin therapy following successful watchman device implantation. Recommend continued follow up with Neurology. I have been asked to follow up with her directly regarding her having further questions. I have performed televideo consultation. She is alert & oriented; able to answer all questions appropriately and perform complex/embedded commands without deficit. Neurological exam is non lateralizing/nonfocal in terms of motor strength and coordination. NIHSS=1 for dysarthria. She has questions regarding a return to work note, if her dysarthria will resolve and if she should continue full anticoagulation. I have explained it is unclear if she will completely recover her baseline speech. I recommend continued therapy services. From neurology perspective -she is ok to return to work as tolerated. I agree with full anticoagulation, ASA and statin therapy (as tolerated). Following Watchman device/when cardiology recs discontinuation of full anticoagulation then recommend continued antiplatelet and statin therapy Physical Exam Neurological Examination: Mental Status: Awake and alert. Oriented to person, place, and time. She reports her speech is not yet returned to baseline Fluency naming repetition and comprehension appear grossly intact. Affect remains appropriate. CN testing: I: Denies changes in ability to smell II:Reports no changes in visual acuity III/IV/: No evidence of gaze preference, hippus, nystagmus or roving eye movements V: Facial sensation reportedly grossly intact to light touch bilaterally VII: Facial movements appear without evidence of asymmetry VIII: Hearing appears grossly intact to loud voice bilaterally IX/X: Palate appears to elevate symmetrically XI: Shoulder shrug appears symmetric/ grossly intact bilaterally XII: Tongue protrudes midline without evidence of biting Motor exam: Strength appears grossly intact/symmetric in all extremities Sensory: Sensation is reportedly grossly intact throughout Coordination: Deferred Reflexes: Deferred Gait: Deferred Results & Data Vital Signs (Past 12 Hours) Vital Signs Temp Pulse Resp BP Pulse Ox O2 Del Method 05/07/24 11:11 36.4 C L 61 18 172/100 H 95 Room Air 05/07/24 10:15 154/95 H 05/07/24 08:16 174/90 H 05/07/24 07:35 66 15 174/112 H 97 Room Air 05/07/24 04:12 60 18 161/81 H 96 Room Air
[2024-05-07] MEDS ORDERED: STROKE PATIENT DISCHARGE STA (16:05)
--- NOTE | 2024-05-07 16:11 | Discharge Summary ---
Date of Service May 07, 2024 Admission HPI Per Admitting Provider Ms. James is a 78 year old female that presents to the ED with stroke like symptoms. She has a R sided facial droop. [facility] Telestroke consult with Dr. Gil indicated that there would not be any intervention with clot retrieval. MRA and brain MRI obtained. Her symptoms have been waxing and waning with her symptoms; LKW 05/04 @ 1700. PMH includes: pAF (not on anticoagulation), DM2, HTN and HLD. Reports intolerance to beta-nadia therapy as well as aspirin sensitivity related to easy bruising. Declines prescription of beta-nadia therapy and/or anticoagulation today. Patient follows with cardiology for paf that started in 2019 in the setting of covid. She was seen by an EP doctor in [facility] who recommended oral anticoagulation Has not been able to get in to see Software Quality Assurance Engineer here ; Dr. Contreras. 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 Last month she suffered a head injury. The patient is a 78-year-old female who arrives for evaluation of a horse accident. This started about 6 PM tonight and is described as being thrown onto her right side from a horse drawn cart. Patient states that she has been involved with horses for about 40 years. She has never had a prior accident like this. The horse was blocking and she noted the cart tipped over and she was thrown about 5 feet and landed on her right side. Current NIH 0-1 03/20/2024 she sustained a fall from horse cart, + hit head, no LOC. R SDH 03/20/[address] on 04/03 s/p fall. Head CT head/brain from 03/20/24: Stable right parafalcine subdural hematoma. Brother of a major spontaneous hemorrhage. She took her Valsartan this morning and her Clonidine patch was taken off today. Todays imaging: Head CT: 1. Acute to subacute appearing 2 cm right frontal lobe mendoza radiata and basal ganglia infarct is new from 03/20/2024. 2. No acute intracranial hemorrhage or midline shift. Brain MRI: Confirmation of the acute 2 cm infarct in the right frontal lobe cor rip radiata and right basal ganglia. Head/Neck MRA shows blood vessel patency; without high grade stenosis. Pt denies Turk, visual or auditory changes, changes in thought, mood or memory, seizure like activity, chest pain, palpitations, dyspnea, hematochezia or dysuria. Ultimately, patient with a basal ganglia acute stroke. Typically we would prescribe dual antiplt medications and statin medications. She was quite resistant to any medications or treatment to prevent further worsening or new additional strokes. She was very clear that she has taken statins before with poor tolerance. She has HTN 179/85 which we would allow permissive HTN. Neurology consult placed and she was receptive to PT/OT. She would prefer to be seen by Cardiology for a watchman procedure for which she would likely be receptive to taking short term anticoagulation. She has stated that she has persistent HTN and takes her Valsartan and Clonidine consistently. We were able talk to the patients daughter Jordyn at [phone] who is also a practicing anesthesiologist would like assistance with her seeing a choir member for evaluation. Pt daughter was able to speak with patient who then became receptive to starting Crestor only. She was receptive of taking a baby asa Q 48 hours. She has been on HCTZ, Aldactone, and Amlodipine in the past which she is not receptive with due to previous swelling and facial hair growth. She is not receptive of CCB's. Patient will be admitted for further evaluation and management of her acute stroke with a baby aspirin every 48 hours with continuing her HTN medications. Please see A/P for further details. Admission Exam Per Admitting Provider Neuro: AAOx4, PERRLA, no aphagia, memory changes, CNII-XII grossly intact HEENT: head normocephalic, moist mucus membranes CV: S1/S2, (-) M/G/R, (-) edema, cap refill < 3 seconds Resp: Lungs CTA in all [place]. On RA GI: Abdomen S/NT/ND, Ax4 bowel sounds, (-) CVA tenderness Musculoskeletal: 5/5 B/L UE strength, 5/5 B/L LE strength. No gait disturbance Skin: (-) rashes , (-) erythema. Psych: euthymic mood Principal Diagnosis Acute ischemic stroke of right basal ganglia/right frontal lobe mendoza radiator Uncontrolled hypertension History of subdural hematoma History of paroxysmal A-fib not on anticoagulation by preference Discharge Exam GENERAL: Alert and oriented x3. NAD, on RA. HEENT: No pallor, no icterus. Pupils equal, round and reactive to light. Oral mucosa moist. NECK: No JVD, no neck masses. HEART: S1 and S2 heard. Regular rate and rhythm. No murmur, no gallop. RESPIRATORY SYSTEM: Normal AP diameter. No accessory muscle use. No wheezing, no crackles. ABDOMEN: Soft, bowel sounds present, nontender, no distention. CENTRAL NERVOUS SYSTEM: No facial droop. Speech is clear. Obeys simple commands. Moves extremities. EXTREMITIES: No edema, no erythema seen. Discharge Data Allergies Allergy/AdvReac Type Severity Reaction Status Date / Time Beta-Blockers Allergy Severe Anaphylaxis Verified 02/16/24 08:43 (Beta-Adrenergic Bloc Iodinated Contrast Media Allergy Severe pt reports Verified 05/05/24 16:36 hives vancomycin Allergy Severe Anaphylaxis Verified 05/05/24 16:34 amoxicillin [From Amoxil] Allergy Intermediate Rash Verified 02/16/24 08:43 ampicillin Allergy Intermediate Skin rash Verified 05/05/24 16:34 diphtheria,pertussis Allergy Unknown Verified 05/07/24 09:22 (acellular),te [From Boostrix Tdap] metoprolol Allergy Difficulty Verified 05/05/24 16:38 Breathing atenolol AdvReac Wheezing Verified 05/05/24 16:33 [id number] Reductase AdvReac Muscle Pain Verified 05/05/24 16:36 Inhibitor Consultations 05/05/24 15:58 ED Decision to Admit Stat 05/05/24 16:01 Consult Neurology Routine 05/05/24 16:03 Consult Neurology Routine 05/05/24 17:37 Consult Cardiology Routine Ordered Studies 05/05/24 14:45 CT head/brain wo con Stat 05/05/24 15:11 MR brain wo con Stat MRI Angio Brain [MR angio head wo con] Stat MRI Angio Neck [MR angio neck wo con] Stat Hospital Course (1) Acute ischemic stroke: (2) Acute stroke of basal ganglia: (3) Hypertension: (4) Atrial fibrillation: (5) Pre-diabetes: (6) Elevated cholesterol: 78 yo F w/ PMH of T2DM, HTN, Afib not on anticoagulation by preference presented to ED w/ stroke like symptoms and noted to be in hypertensive crises. She was managed for the following: Acute ischemic stroke of right basal ganglia/right frontal lobe mendoza radiata Uncontrolled HTN: Presents to ED today with strokelike symptoms. [facility] 05/04 1700. Telestroke consult with [facility] no intervention with clot retrieval. Head and neck imaging reviewed: acute 2 cm infarct in the right frontal lobe mendoza radiata and right basal ganglia ECHO reviewed. Patient denies any new focal weakness or numbness or tingling and reports feeling better. d/w neuro 05/06, pt agreeable to baby aspirin daily. Discussed with neuro 05/07, patient agreeable to Eliquis. d/w cardio 05/06, pt agreeable to coreg 6.25 mg bid. Patient had declined further blood draws during inpatient care. Because of uncontrolled blood pressure, patient will be discharged on hydralazine, this needs to be uptitrated, patient to follow-up with PCP or cardiology for ongoing management of her blood pressure. c/w home clonidine and valsartan. c/w coreg 6.25 mg bid. PT/OT/Speech evaled, cleared her. c/w HH diet. History of SDH: 03/20 Suffered a SDH secondary to a horse cart tipping over on 03/20/[address] Paroxysmal A-fib: H/O ecchymosis: Chronic Secondary to COVID diagnosed in 2019 She was seen by an EP physician in [place] who recommended she start oral anticoagulation; patient declines Reports easy bruising; has not had any heme work up; patient brother from a spontaneous ICH in his 50s. Goal is to see cardiology to discuss treatment options including ablation, which has been discussed per cardio's eval 05/06 Disposition: PCP: Dr. Dueñas Code Status: Full Code VTE Prophylaxis: Teds and SCDs for now Patient's primary contact Jose James was given a phone call and updated. He found his mom has significantly improved and her conversation has been more lucid. Patient is being discharged with following instruction at the point of discharge: Follow-up with your primary care physician within a week time and likely you will need labs CBC/CMP/magnesium/phosphorus. Follow-up with neurology in 1 to 2 weeks time upon discharge. Follow-up with cardiology in 1 to 2 weeks time upon discharge. Cardiology evaluated you while in the hospital, with your consent you have been started on Coreg. Measure your blood pressure twice a day, maintain a log to take to your primary care physician for ongoing monitoring/management. Small dose hydralazine has been added which needs to be uptitrated, closely follow-up with your PCP or cardiology. You refused several blood tests including A1c and Lipid profile while in the hospital, recommend that you get those tests done at your PCP office during your next visit within a week time. Further management from your PCP evaluation. As discussed at the bedside, if you have any new numbness/tingling/weakness or any signs of anaphylactic reaction [lightheadedness/shortness of breath/wheezing/abdominal pain/chest tightness/chest pain] report to the emergency immediately. Take your medications as prescribed. Please make sure that you are able to get your medications today by calling your pharmacy before you leave the hospital so that your treatment continuity is not broken. Home Health Attestation I certify that this patient is under my care and that I, or a physicians commercial lending assistant working with me, had a face to-face encounter that meets the home health [id number] encounter requirements with this patient. The encounter with the patient was in whole, or in part, for the following medical condition, which is the primary reason for home health care (list medical condition): I certify that, based on my findings, the following services are medically necessary home health services: My clinical findings support the need for the above services because: Further, I certify that my clinical findings support that this patient is homebound (i.e. absences from home require considerable and taxing effort and are for medical reasons or orthodoxy services or infrequently or of short duration when for other reasons) because: Certification for Home Health Services: Based on the above findings, I certify that this patient is confined to the home and needs intermittent mcfp care, physical therapy and/or speech therapy or continues to need occupational therapy. The patient is under my care, and I have initiated the establishment of the plan of care. This patient will be followed by a physician who will periodically review the plan of care. Total Time Total Time Spent Total Time Spent (In Minutes): 45 Discharge Plan Discharge Items Patient Disposition: Home - Self-Care Reason For Visit: STROKE LIKE SYMPTOMS Discharge Diagnosis: Acute ischemic stroke of right basal ganglia/right frontal lobe mendoza radiator Uncontrolled hypertension History of subdural hematoma History of paroxysmal A-fib not on anticoagulation by preference Activity: Resume your previous activity Non-emergency contact: Primary Care Provider Call non-emergency contact if: you have any medication questions and your symptoms worsen Follow-up/Referrals: Nikolai Tellez MD [Primary Care Provider] - Diet: Heart Healthy Addtl Attending Provider Instructions: Follow-up with your primary care physician within a week time and likely you will need labs CBC/CMP/magnesium/phosphorus. Follow-up with neurology in 1 to 2 weeks time upon discharge. Follow-up with cardiology in 1 to 2 weeks time upon discharge. Cardiology evaluated you while in the hospital, with your consent you have been started on Coreg. Measure your blood pressure twice a day, maintain a log to take to your primary care physician for ongoing monitoring/management. Small dose hydralazine has been added which needs to be uptitrated, closely follow-up with your PCP or cardiology. You refused several blood tests including A1c and Lipid profile while in the hospital, recommend that you get those tests done at your PCP office during your next visit within a week time. Further management from your PCP evaluation. As discussed at the bedside, if you have any new numbness/tingling/weakness or any signs of anaphylactic reaction [lightheadedness/shortness of breath/ wheezing/abdominal pain/chest tightness/chest pain] report to the emergency immediately. Take your medications as prescribed. Please make sure that you are able to get your medications today by calling your pharmacy before you leave the hospital so that your treatment continuity is not broken. Pending Studies at Discharge: No Stand-Alone Forms: My [facility], Smoking Cessation, Medications to Prevent Stroke Medications and DC Order Prescriptions: New rosuvastatin 10 mg Tablet 10 mg PO QAM Qty: 30 0RF aspirin 81 mg Tablet,Delayed Release (Dr/Ec) 81 mg PO HS Qty: 30 0RF carvedilol [Coreg] 6.25 mg tablet 6.25 mg PO BID Qty: 60 0RF Rx Instructions: must administer with a meal/food Eliquis 5 mg Tablet 5 mg PO BID Qty: 60 0RF hydralazine 10 mg tablet 10 mg PO TID Qty: 90 0RF Continued cholecalciferol (vitamin D3) 50 mcg (2,000 unit) capsule 50 mcg PO AMHS valsartan [Diovan] 160 mg Tablet 160 mg PO QAM clonidine 0.2 mg/24 hr patch weekly 1 patch transdermal WK Rx Instructions: Apply weekly on Sundays Vitamin 27 mg iron- 800 mcg Tablet 1 tab PO QAM acetaminophen 325 mg Tablet 975 mg PO Q6 PRN (Reason: Pain (Scale Score 1-3)) esomeprazole magnesium 20 mg Tablet,Delayed Release (Dr/Ec) 20 mg PO DAILYBB ascorbic acid (vitamin C) [Vitamin C] 1,000 mg Tablet 1 g PO AMHS Discharge Orders: Discharge Order (Routine); Ordered 05/07/24 Ordered By: Shana Basurto Admission Data Admit Date/Time: 05/05/24 16:01 Attending Provider: Shana Basurto Admit Provider: Rancho Plasencia Primary Care Provider: Nikolai Tellez Other Providers: Abimael Mancilla; Rancho Plasencia; Liana Brown
[2024-05-07] MEDS: APIXABAN 5 MG TABLET PO SCH (16:40)
== END 2024-05-07 17:25 | disposition home or self-care (01) | DRG 65 ==
LOC: ED 14:51 → SUATTDRO 16:01 → EDINP 16:01 → 2S 22:51